=== PATIENT | female | born 1955 | race Caucasian/White ===

== ENCOUNTER → 2016-09-15 | Day surgery (SDC) | payer OTHER ==
[2016-09-07 12:46] VITALS: Ht 156.2 cm; Wt 131.8 kg
[~2016-09-15] VITALS: Ht 156.2 cm; Wt 131.8 kg
[~2016-09-15] MED LIST: AMLO-110 PO; BIOT1CAP8 PO; CEPH500C PO; CHOL20009 PO; COEN100C11 PO; CYAN500T13 PO; LEVO137T3 PO; LIDOCAINE HCL 2% 2 ML VIAL (20MG/ML) ONE; MIDAZOLAM HCL 1 MG/ML 2ML VIAL ONE; OMEG10007 PO; PROPOFOL IV EMULSION 10 MG/ML 20 ML VIAL IV ONE; SODIUM CHLORIDE 0.9% 500ML 500 ML IV ONE; VITA400C3 PO
--- NOTE | 2016-09-15 12:49 | Endo History and Physical ---
History & Physical Date of Service: Sep 15, 2016. Chief Complaint: Hx of polyps, Family hx of colon ca Referring Physician: Dr Pop History of Present Illness 60 yo CF who presents for colonoscopy secondary to family history of colon cancer and personal history of colon polyps. Past Surgical History Hx Cardiac Surgery: No Hx Internal Defibrillator: No Hx Pacemaker: No Hx Abdominal Surgery: Yes (AVTAR) Hx of Implantable Prosthesis: No Hx Post-Op Nausea and Vomiting: No Hx Cancer Surgery: No Hx Thoracic Surgery: No Hx Orthopedic: No (RT KNEE ARTHROSCOPY) Hx Urinary Tract Surgery: No Family History Colon CA Social History Smoking Status: Never Smoker Hx Substance Use: No Hx Alcohol Use: Yes (OCCASSIONALLY) Allergies Coded Allergies: Iodinated Contrast Media (Verified Allergy, Unknown, HIVES, 09/15/16) Sulfa Drugs (Verified Allergy, Unknown, RASH, 09/15/16) Current Medications Reported Home Medications Medications Dose Route/Sig Max Daily Dose Days Date Category Vitamin E 400 Iu (Vitamin E) 400 Unit Cap 400 Inter.unit PO QAM 09/07/16 Reported Vitamin D (Cholecalciferol) 2,000 Unit Tab 2 Tab PO QAM 09/07/16 Reported [place]-3 (Fish Oil) 1 Ea Cap 1 Cap PO BID 09/07/16 Reported Vitamin B12 500MCG (Cyanocobalamin) 500 Mcg Tab 500 Mcg PO QAM 09/07/16 Reported Biotin 1 Mg Cap 1 Cap PO QAM 09/07/16 Reported Coq-10 (Coenzyme Q10 (Ubidecarenone)) 100 Mg Cap 200 Mg PO QAM 09/07/16 Reported Levothyroxine Sodium 137 Mcg Tab 1 Tab PO HS 90 09/07/16 Reported Vital Signs Weight (Kilograms): 131.82 Height (Feet): 5 Height (Inches): 1.5 Physical Exam General Appearance: WD/WN, no apparent distress Respiratory/Chest: Auscultation: breath sounds normal Cardiovascular: Heart Auscultation: RRR Abdomen: Bowel Sounds: normal Inspection & Palpation: soft, non-distended, no tenderness, guarding & rebound Assessment and Plan Assessment: 60 yo CF who presents for colonoscopy secondary to family history of colon cancer and personal history of colon polyps. Plan: Proceed with colonoscopy.
--- NOTE | 2016-09-15 14:31 | Discharge Instructions ---
Endoscopy Patient Instructions Date / Procedure(s) Performed Sep 15, 2016. Colonoscopy Allergy Information Coded Allergies: Iodinated Contrast Media (Verified Allergy, Unknown, HIVES, 09/15/16) Sulfa Drugs (Verified Allergy, Unknown, RASH, 09/15/16) Discharge Date / Findings Sep 15, 2016. Colon polyp Internal hemorrhoids Medication Instructions OK to resume all medications today as prescribed Reported Home Medications Medications Dose Route/Sig Max Daily Dose Days Date Category Vitamin E 400 Iu (Vitamin E) 400 Unit Cap 400 Inter.unit PO QAM 09/07/16 Reported Vitamin D (Cholecalciferol) 2,000 Unit Tab 2 Tab PO QAM 09/07/16 Reported [place]-3 (Fish Oil) 1 Ea Cap 1 Cap PO BID 09/07/16 Reported Vitamin B12 500MCG (Cyanocobalamin) 500 Mcg Tab 500 Mcg PO QAM 09/07/16 Reported Biotin 1 Mg Cap 1 Cap PO QAM 09/07/16 Reported Coq-10 (Coenzyme Q10 (Ubidecarenone)) 100 Mg Cap 200 Mg PO QAM 09/07/16 Reported Levothyroxine Sodium 137 Mcg Tab 1 Tab PO HS 90 09/07/16 Reported Provider Instructions Activity Restrictions - No exercising or heavy lifting for 24 hours. - Do not drink alcohol the day of the procedure. - Do not drive a car or operate machinery until the day after the procedure. - Do not make any important decisions or sign important papers in 24 hours after the procedure. Following Day: - Return to full activity which may include returning to work/school. Diet Start your diet with liquids and light foods (jello, soup, juice, toast). Then eat your usual diet if not nauseated. Treatment For Common After Affects For mild abdominal pain, bloating, or excessive gas: - Rest - Eat lightly - Lie on right side Follow-Up Information Follow-up with Dr Pop as scheduled Anesthesia Information What You Should Know You have had a procedure that required some medicine to reduce anxiety and discomfort. This treatment is called moderate sedation. After receiving the treatment, you may be sleepy, but you will be able to breathe on your own. The effects of the treatment may last for several hours. Follow these instructions along with Activity/Diet recommendations noted above: * Do NOT do anything where dizziness or clumsiness would be dangerous. * Rest quietly at home today, then you can be up and about tomorrow. * Have a responsible person stay with you the rest of today. * You may have had an I.V. today. If so, you may take the dressing off later today. Recommendations Call your doctor if: * Trouble breathing * Continuous vomiting for more than 24 hours * Temperature above 101 degrees * Severe abdominal pain or bloating * Pain not relieved by pain medicine ordered * There is increased drainage or redness from any incision * A large amount of rectal bleeding greater than 2-3 tablespoons. (If you had a polyp/s removed or have hemorrhoids, a small amount of blood - from the rectum is to be expected.) * You have any unanswered questions or concerns. IN THE EVENT OF A SERIOUS EMERGENCY, GO TO THE NEAREST EMERGENCY ROOM Your discharge instructions were prepared by provider Robert Campos. Patient Instructions Signature Page Zuleyka Disla Patient (or Guardian) Signature/Date: I have read and understand the instructions given to me by my caregivers. Caregiver/RN/Doctor Signature/Date: The above-named patient and/or guardian has received patient instructions on this date. + Original Patient Signature Page (only) stays with chart. Please make copy for patient.
--- NOTE | 2016-09-15 14:54 | Anesthesiology Progress Note ---
Anesthesia Post Op Note Date & Time Sep 15, 2016 at 14:53 Vital Signs Pain Intensity: 0 Vital Signs Past 12 Hours Date Time Temp Pulse Resp B/P Pulse Ox O2 Delivery O2 Flow Rate FiO2 09/15/16 14:45 76 16 140/61 99 Room Air 09/15/16 14:30 74 12 120/56 97 Room Air 09/15/16 12:54 36.7 84 16 198/68 97 Room Air Notes Mental Status: alert / awake / arousable Nausea / Vomiting: adequately controlled Pain: adequately controlled Airway Patency, RR, SpO2: stable & adequate BP & HR: stable & adequate Hydration State: stable & adequate Anesthetic Complications: no major complications apparent
[2016-09-15 15:00] VITALS: BP 152/67; PULSE 70; O2SAT 99
--- NOTE | 2016-09-16 00:46 | GI REPORT ---
Procedure Date: 09/15/2016 1:55 PM Procedure: Colonoscopy Indications: High risk colon cancer surveillance: Personal history of colonic polyps, Family history of colon cancer in a first-degree relative Medicines: Monitored Anesthesia Care Complications: No immediate complications. Estimated Blood Loss: Estimated blood loss: none. Procedure: Pre-Anesthesia Assessment: - Prior to the procedure, a History and Physical was performed, and patient medications and allergies were reviewed. The patient's tolerance of previous anesthesia was also reviewed. The risks and benefits of the procedure and the sedation options and risks were discussed with the patient. All questions were answered, and informed consent was obtained. Prior Anticoagulants: The patient has taken no previous anticoagulant or antiplatelet agents. ASA Grade Assessment: II - A patient with mild systemic disease. After reviewing the risks and benefits, the patient was deemed in satisfactory condition to undergo the procedure. After I obtained informed consent, the scope was passed under direct vision. Throughout the procedure, the patient's blood pressure, pulse, and oxygen saturations were monitored continuously. The On-site loaner was introduced through the anus and advanced to the terminal ileum. The colonoscopy was performed without difficulty. The patient tolerated the procedure well. The quality of the bowel preparation was good. The ileocecal valve, appendiceal orifice, and rectum were photographed. Findings: A 5 mm polyp was found in the sigmoid colon. The polyp was sessile. The polyp was removed with a hot snare. Resection and retrieval were complete. Non-bleeding internal hemorrhoids were found during retroflexion. The hemorrhoids were small. Impression: - One 5 mm polyp in the sigmoid colon, removed with a hot snare. Resected and retrieved. - Non-bleeding internal hemorrhoids. Recommendation: - Resume previous diet. - Continue present medications. - Repeat colonoscopy for surveillance based on pathology results. - Return to primary care physician as previously scheduled. Robert Campos DO 09/15/2016 2:30:46 PM This report has been signed electronically. Note Initiated On: 09/15/2016 1:55 PM I attest to the content of the Intraoperative Record and orders documented therein, exceptions below
== END | disposition home or self-care (01) ==
LOC: C.GI 12:20
PROVIDERS: ATTEND Internal Medicine
DX: Z12.11 Encounter for screening for malignant neoplasm of colon (principal); K63.5 Polyp of colon; Z86.010 Personal history of colon polyps; Z80.0 Family history of malignant neoplasm of digestive organs; K64.8 Other hemorrhoids; Z98.890 Other specified postprocedural states; Z88.2 Allergy status to sulfonamides; Z91.041 Radiographic dye allergy status

== ENCOUNTER → 2016-11-09 | Outpatient (CLI) | payer OTHER ==
[~2016-11-09] MED LIST changes: -LIDOCAINE HCL 2% 2 ML VIAL (20MG/ML) ONE; -MIDAZOLAM HCL 1 MG/ML 2ML VIAL ONE; -PROPOFOL IV EMULSION 10 MG/ML 20 ML VIAL IV ONE; -SODIUM CHLORIDE 0.9% 500ML 500 ML IV ONE
--- NOTE | 2016-11-09 12:49 | DIAGNOSTIC IMAGING REPORT ---
KUB CLINICAL HISTORY: Right flank pain. COMPARISON STUDY: CT of the abdomen and pelvis February 22, 2013. FINDINGS: The bowel gas pattern is normal. Pelvic calcifications likely reflect phleboliths. No convincing urinary calculi are identified. A 4 mm density lateral to the right transverse process of L1 is likely artifactual. IMPRESSION: 1. No evidence for a bowel obstruction. 2. No convincing urinary calculi identified. A 4 mm density projecting lateral to the right transverse process of L1 is likely artifactual. A calculus could appear similar but is considered less likely. Electronically signed by: Evelio Clarke M.D. 11/09/2016 12:47 PM Dictated Date/Time: 11/09/2016 12:45 PM
[2016-11-09 13:16] LABS: BASO % 0.1 %; BASO ABS # 0.01 K/uL (0-0.2); COMPLETE YES; EOS % 1.2 %; HEMATOCRIT 44.8 % (37-47); IG% 0.1 %; LYMPH % 30.7 %; LYMPH ABS # 2.09 K/uL (1.2-3.4); MEAN CORPUSCULAR HEMOGLOBIN 30.2 pg (25-34); MEAN CORPUSCULAR HGB CONC 32.8 g/dl (32-36); MEAN PLATELET VOLUME 9.6 fL (7.4-10.4); MONO % 6.6 %; NEUT % 61.3 %; PLATELET COUNT 358 K/uL (130-400); RED BLOOD COUNT 4.87 M/uL (4.2-5.4)
[2016-11-09 14:51] LABS: URINE APPEARANCE CLEAR (CLEAR); URINE BILIRUBIN NEG (NEG); URINE COLOR YELLOW; URINE NITRITE NEG (NEG); URINE SPECIFIC GRAVITY 1.011 (1.000-1.030); UROBILINOGEN NEG (NEG); ZZUR CULT IF INDIC CLEAN CATCH NO
[2016-11-09 14:54] LABS: MANUAL MICROSCOPIC REQUIRED? NO; REVIEW REQ? NO
[2016-11-09 14:56] LABS: ALT/SGPT 31 U/L (12-78); BLOOD UREA NITROGEN 16 mg/dl (7-18); BUN/CREATININE RATIO 20.5 (10-20); CARBON DIOXIDE 28 mmol/L (21-32); CHLORIDE 104 mmol/L (98-107); CREATININE 0.78 mg/dl (0.60-1.20); GLUCOSE 83 mg/dl (70-99); POTASSIUM 4.3 mmol/L (3.5-5.1); SODIUM 139 mmol/L (136-145)
[2016-11-09 15:00] LABS: CALCIUM 9.7 mg/dl (8.5-10.1)
[2016-11-09 15:07] LABS: ALKALINE PHOSPHATASE 76 U/L (45-117); AST/SGOT 20 U/L (15-37); THYROID STIMULATING HORMONE 0.568 uIu/ml (0.300-4.500)
== END | disposition home or self-care (01) ==
LOC: C.RAD1850 12:07
PROVIDERS: ATTEND Internal Medicine
DX: R10.9 Unspecified abdominal pain (principal); R39.9 Unspecified symptoms and signs involving the genitourinary system; E03.9 Hypothyroidism, unspecified

== ENCOUNTER → 2016-11-15 | Outpatient (CLI) | payer OTHER ==
--- NOTE | 2016-11-15 09:24 | DIAGNOSTIC IMAGING REPORT ---
Right upper quadrant ultrasound GALLBLADDER-ABD LIMITED CLINICAL HISTORY: K80.20 GS (gallstone)[id number] pain. Nausea. TECHNIQUE: Ultrasound COMPARISON STUDY: 02/23/2013 FINDINGS: Gallstones are present similar to the prior study. Common bile duct 5.5 mm. Liver is uniform. 1 cm right hepatic lobe hemangioma. Pancreas and right kidney unremarkable. IMPRESSION: 1. Gallstones. 2. Normal caliber bile ducts. 3. Small right hepatic lobe hemangioma Electronically signed by: Quirino Resendiz M.D. 11/15/2016 9:23 AM Dictated Date/Time: 11/15/2016 9:20 AM
== END | disposition home or self-care (01) ==
LOC: C.ULTR 08:53
PROVIDERS: ATTEND Internal Medicine
DX: K80.20 Calculus of gallbladder without cholecystitis without obstruction (principal); D18.03 Hemangioma of intra-abdominal structures

== ENCOUNTER → 2016-11-18 | Outpatient (CLI) | payer OTHER ==
--- NOTE | 2016-11-18 15:41 | MAMMOGRAPHY REPORT ---
BILATERAL DIGITAL SCREENING MAMMOGRAM WITH CAD: 11/18/2016 CLINICAL HISTORY: Routine screening. Patient has no complaints. TECHNIQUE: Current study was also evaluated with a Computer Aided Detection (CAD) system. Bilatera l CC and MLO and left XCCM and right X CCL views were obtained. COMPARISON: Comparison is made to exams dated: 09/16/2015 mammogram, 07/07/2014 mammogram, and 2012 mammogram - [facility]. BREAST COMPOSITION: There are scattered areas of fibroglandular density in both breasts. FINDINGS: No suspicious masses, calcifications, or areas of architectural distortion are noted in e ither breast. There has been no significant interval change compared to prior exams. IMPRESSION: ACR BI-RADS CATEGORY 2: BENIGN There is no mammographic evidence of malignancy. A 1 year screening mammogram is recommended. The p atient will receive written notification of the results. Approximately 10% of breast cancers are not detected with mammography. A negative mammographic repor t should not delay biopsy if a clinically suggestive mass is present. Alvina Nolasco M.D. ah/:11/18/2016 13:44:42 Ladle Filler: Torri LEWIS(R)(M), [facility] letter sent: Normal 1/2 BI-RADS Code: ACR BI-RADS Category 2: Benign
== END | disposition home or self-care (01) ==
LOC: C.MAMM 12:12
PROVIDERS: ATTEND Internal Medicine
DX: Z12.31 Encounter for screening mammogram for malignant neoplasm of breast (principal)

== ENCOUNTER 2016-12-07 20:08 | Emergency (ER) | payer OTHER ==
[~2016-12-07] VITALS: Ht 154.9 cm; Wt 144.3 kg
[~2016-12-07 20:08] MED LIST changes: -AMLO-110 PO; -CEPH500C PO
[2016-12-07 20:24] VITALS: TEMP 36.4; O2SAT 97; Ht 154.9 cm; Wt 144.3 kg
[2016-12-07] MEDS ORDERED: LABETALOL HCL IV 5 MG/ML 20ML IV STA (20:33)
--- NOTE | 2016-12-07 20:50 | EMERGENCY ROOM VISIT NOTE ---
History Report prepared by Yany: Miguel Bell Under the Supervision of: Dr. Jorge Junior M.D. First contact with patient: 20:31 Chief Complaint: HYPERTENSION Stated Complaint: NOSE BLEED History of Present Illness The patient is a 61 year old female who presents to the Emergency Room via ambulance with complaints of constant hypertension and nose bleeds occurring around an hour ago. The patient states that she got up after laying down, and her right nostril started bleeding, and then her left, and she has been passing clots. The patient states that she had hypertension a few years ago, though it was under control. She states that she was recently put on Norvasc, and today was the second day of using it. The patient states that she had to put pressure on her nose for an hour to stop it from bleeding. She states that she does not have a history of nose bleeds, though she had another one four days ago. The patient denies using any blood thinners, aspirin, Aleve, or ibuprofen. Source of History: patient Onset: an hour ago Position: other (global) Quality: other (hypertension) Timing: constant Note: Associated symptoms: Nose bleed. Review of Systems See HPI for pertinent positives & negatives. A total of 10 systems reviewed and were otherwise negative. Past Medical & Surgical Medical Problems: (1) Hypertension Social History Smoking Status: Never Smoker Marital Status: Housing Status: lives with family Occupation Status: employed Current/Historical Medications Scheduled Amlodipine (Norvasc), 5 MG PO DAILY Biotin (Biotin), 1 CAP PO QAM Cephalexin Monohydrate (Keflex), 500 MG PO TID Cholecalciferol (Vitamin D), 2 TAB PO QAM Coenzyme Q10 (Ubidecarenone) (Coq-10), 200 MG PO QAM Cyanocobalamin (Vitamin B12 500MCG), 500 MCG PO QAM Fish Oil ([place]-3), 1 CAP PO DAILY Levothyroxine Sodium (Levothyroxine Sodium), 1 TAB PO HS Allergies Coded Allergies: Iodinated Contrast Media (Verified Allergy, Unknown, HIVES, 12/07/16) Sulfa Drugs (Verified Allergy, Unknown, RASH, 12/07/16) Physical Exam Vital Signs Date Time Temp Pulse Resp B/P Pulse Ox O2 Delivery O2 Flow Rate FiO2 12/08/16 00:37 79 18 141/76 100 12/07/16 22:37 84 16 130/67 99 12/07/16 21:43 71 16 96 12/07/16 21:28 71 20 98 12/07/16 21:13 80 17 96 12/07/16 21:08 73 24 92 12/07/16 20:59 144/97 12/07/16 20:53 78 23 12/07/16 20:42 204/82 12/07/16 20:38 76 23 12/07/16 20:30 81 12/07/16 20:24 217/121 12/07/16 20:24 97 Room Air 12/07/16 20:24 36.4 80 18 217/121 99 Room Air Physical Exam GENERAL: Patient is in no acute distress. HEENT: Dried blood on the face. No active nasal bleeding. No blood running down the back of the throat. No acute trauma, normocephalic atraumatic, mucous membranes moist, no scleral icterus. NECK: No stridor, no adenopathy, no meningismus, trachea is midline. LUNGS: Clear to auscultation bilaterally, no wheeze, no rhonchi, breath sounds equal. HEART: Without murmurs gallops or rubs, regular rate and rhythm. ABDOMEN: Soft, nontender, bowel sounds positive, no hernias, no peritonitis. EXTREMITIES: No cyanosis or edema, full range of motion of all the joints without pain or difficulty, no signs for acute trauma. NEUROLOGIC: Oriented x 3, no acute motor or sensory deficits, no focal weakness. SKIN: No rash, no jaundice, no diaphoresis. Medical Decision & Procedures Laboratory Results 12/07/16 20:45 12/07/16 20:45 Test 12/07/16 20:45 Red Blood Count 4.41 M/uL (4.2-5.4) Mean Corpuscular Volume 89.8 fL (80-100) Mean Corpuscular Hemoglobin 30.2 pg (25-34) Mean Corpuscular Hemoglobin Concent 33.6 g/dl (32-36) RDW Standard Deviation 42.5 fL (36.4-46.3) RDW Coefficient of Variation 12.9 % (11.5-14.5) Mean Platelet Volume 9.2 fL (7.4-10.4) Anion Gap 7.0 mmol/L (3-11) Est Creatinine Clear Calc Drug Dose 80.6 ml/min Estimated GFR () 70.4 Estimated GFR (Non- 60.8 BUN/Creatinine Ratio 18.7 (10-20) Calcium Level 9.4 mg/dl (8.5-10.1) Thyroid Stimulating Hormone (TSH) 0.333 uIu/ml (0.300-4.500) Laboratory results reviewed by me. Medications Administered Medications (Trade) Dose Ordered Sig/Bart Route Start Time Stop Time Status Last Admin Dose Admin Labetalol HCl (Normodyne IV) 20 mg NOW STAT IV 12/07/16 20:33 12/07/16 20:36 DC 12/07/16 20:54 20 MG Acetaminophen (Tylenol Tab) 1,000 mg NOW STAT PO 12/07/16 23:53 12/07/16 23:55 DC 12/08/16 00:07 1,000 MG Cephalexin Monohydrate (Keflex Cap) 500 mg NOW STAT PO 12/07/16 23:53 12/07/16 23:55 DC 12/08/16 00:07 500 MG Amlodipine Besylate (Norvasc Tab) 2.5 mg NOW ONCE PO 12/08/16 00:00 12/08/16 00:01 DC 12/08/16 00:07 2.5 MG Procedure Right nostril was bleeding, and the patient was spitting up blood. Using Lidocaine, Afrin, and Nasoclips the bleeding was slowed, then a 4.5cm right sided Rhino Pack was put in place, and the bleeding stopped. ED Course 2030: The patient was evaluated in room B8. A complete history and physical exam was performed. 2032: Normodyne 20mg IV 9: I reevaluated the patient, and the patient had increased bleeding, and she was spitting up blood. 2349: Reevaluated the patient, and she had no further bleeding. She is just complaining of pressure from the pack in her nose. Discussed results and discharge instructions: She verbalized understanding and agreement. The patient is ready for discharge. 3: Keflex Cap 500mg PO, Tylenol Tab 1000mg PO 0000: Norvasc Tab Medical Decision The patient is a 61 year old female who presents to the ED with complaints of hypertension. Differential diagnoses considered include anterior or posterior epistaxis, anemia, coagulopathy, uncontrolled hypertension, nasal trauma, and renal disease. There is no leukocytosis or concerning anemia. No significant electrolyte abnormality or kidney failure. The patient was quite hypertensive upon arrival. She had been bleeding from what seemed like the right naris prior to arrival, the bleeding had stopped though by the time I came to do my assessment. The patient received IV labetalol, this did control her blood pressure. She was doing well but then got up to go to the bathroom and the right side of the nose began to bleed excessively. She had blood running down the right nostril and down the back of her throat. She was in distress. Afrin and lidocaine spray was applied. I attempted to place a 5.5 cm right Rhino pack without success. A 4.5 cm pack was placed and the balloon was inflated. The bleeding did stop. The patient was observed for some time, she has done well. She has some pain now on the right side of her nose and head I suspect from the pressure of the pack. She was given oral Tylenol, oral Keflex. She was given 2.5 mg of oral Norvasc. I did contact ears nose and throat on-call, he agreed to see the patient later in the week for reassessment and possibly packing removal. The patient is being discharged to increase her Norvasc to 7.5 mg daily. This will hopefully help control her blood pressure. She was told to return for worsening bleeding or worsening symptoms. She will be on Keflex to prevent sinusitis. Tylenol was suggested for pain. She was discharged in stable condition. Impression Primary Impression: Right-sided epistaxis Additional Impression: Hypertension Scribe Attestation The scribe's documentation has been prepared under my direction and personally reviewed by me in its entirety. I confirm that the note above accurately reflects all work, treatment, procedures, and medical decision making performed by me. Departure Information Dispostion Home / Self-Care Prescriptions Cephalexin Monohydrate (Keflex) 500 Mg Cap 500 MG PO TID for 7 Days, #21 CAP Prov: Jorge Junior M.D. 12/08/16 Referrals RV. Haddad MD (PCP) Forms HOME CARE DOCUMENTATION FORM, IMPORTANT VISIT INFORMATION, WORK / SCHOOL INSTRUCTIONS Patient Instructions My [facility] Additional Instructions keep the pack in for now--about 2-3 days keflex 3x per day while the pack is in place no aspirin or motrin or ibuprofen tylenol for pain no stooping, hot showers, straining or heavy lifting return for any rebleeding see ENT this week---call in the am for an appt if ENT can not see you, return to the ER Monday to have the pack removed Problem Qualifiers
[2016-12-07] MEDS ORDERED: OXYMETAZOLINE HCL 0.05% NA SPR 15 ML BTL ONE (20:53)
[2016-12-07 21:07] LABS: HEMATOCRIT 39.6 % (37-47); MEAN CELL VOLUME 89.8 fL (80-100); MEAN CORPUSCULAR HEMOGLOBIN 30.2 pg (25-34); MEAN CORPUSCULAR HGB CONC 33.6 g/dl (32-36); MEAN PLATELET VOLUME 9.2 fL (7.4-10.4); PLATELET COUNT 326 K/uL (130-400); RED BLOOD COUNT 4.41 M/uL (4.2-5.4); WHITE BLOOD COUNT 9.11 K/uL (4.8-10.8)
[2016-12-07 21:24] LABS: BUN/CREATININE RATIO 18.7 (10-20); POTASSIUM 3.6 mmol/L (3.5-5.1)
[2016-12-07 21:34] LABS: THYROID STIMULATING HORMONE 0.333 uIu/ml (0.300-4.500)
[2016-12-07 22:01] LABS: CALCIUM 9.4 mg/dl (8.5-10.1)
[2016-12-07] MEDS ORDERED: LIDOCAINE 4% W/AFRIN NASAL SOLN 4ML ONE (22:18)
[2016-12-07] MEDS ORDERED: AMLO-110 PO (22:52)
[2016-12-07] MEDS ORDERED: CEPHALEXIN MONOHYDRATE 250 MG CAP PO STA (23:53)
[2016-12-07] MEDS ORDERED: ACETAMINOPHEN 500 MG TAB PO STA (23:53)
[2016-12-08] MEDS ORDERED: AMLODIPINE BESYLATE 5 MG TAB PO ONE
[2016-12-08] MEDS ORDERED: CEPH500C PO (00:13)
[2016-12-08 00:37] VITALS: BP 141/76; PULSE 79; O2SAT 100
== END 2016-12-08 00:38 | disposition home or self-care (01) ==
LOC: EDBD 20:08 → C.EDB 20:10
DX: R04.0 Epistaxis (principal); I10 Essential (primary) hypertension

== ENCOUNTER → 2017-11-10 | Outpatient (CLI) | payer OTHER ==
[~2017-11-10] MED LIST changes: +AMLO-110 PO; -VITA400C3 PO
[2017-11-10 12:38] LABS: BASO % 0.4 %; BASO ABS # 0.02 K/uL (0-0.2); EOS % 1.1 %; EOS ABS # 0.06 K/uL (0-0.5); HEMATOCRIT 42.9 % (37-47); HEMOGLOBIN 14.3 g/dL (12.0-16.0); LYMPH % 27.1 %; LYMPH ABS # 1.45 K/uL (1.2-3.4); MEAN CELL VOLUME 89.2 fL (80-100); MEAN CORPUSCULAR HEMOGLOBIN 29.7 pg (25-34); MEAN CORPUSCULAR HGB CONC 33.3 g/dl (32-36); MEAN PLATELET VOLUME 10.1 fL (7.4-10.4); MONO % 7.8 %; MONO ABS # 0.42 K/uL (0.11-0.59); NEUT % 63.6 %; NEUT ABS # 3.41 K/uL (1.4-6.5); PLATELET COUNT 340 K/uL (130-400); RED CELL DISTRIBUTION WIDTH CV 13.4 % (11.5-14.5); RED CELL DISTRIBUTION WIDTH SD 43.8 fL (36.4-46.3); WHITE BLOOD COUNT 5.36 K/uL (4.8-10.8)
[2017-11-10 12:58] LABS: ALT/SGPT 19 U/L (12-78); AST/SGOT 17 U/L (15-37); BLOOD UREA NITROGEN 12 mg/dl (7-18); CALCIUM 9.1 mg/dl (8.5-10.1); CARBON DIOXIDE 27 mmol/L (21-32); CHOLESTEROL 159 mg/dl (0-200); CREATININE 0.79 mg/dl (0.60-1.20); GLUCOSE 77 mg/dl (70-99); POTASSIUM 3.8 mmol/L (3.5-5.1); SODIUM 139 mmol/L (136-145)
[2017-11-10 13:07] LABS: ALKALINE PHOSPHATASE 75 U/L (45-117); LDL CHOLESTEROL CALCULATED 86 mg/dl; TOTAL PROTEIN 7.7 gm/dl (6.4-8.2); TRANSFERRIN 257 mg/dl (200-360)
== END | disposition home or self-care (01) ==
LOC: C.LAB1850 10:00
PROVIDERS: ATTEND Internal Medicine
DX: E03.9 Hypothyroidism, unspecified (principal); I99.8 Other disorder of circulatory system; Q84.2 Other congenital malformations of hair; R53.83 Other fatigue

== ENCOUNTER → 2017-11-23 | Outpatient (CLI) | payer OTHER ==
--- NOTE | 2017-11-24 07:47 | MAMMOGRAPHY REPORT ---
BILATERAL DIGITAL SCREENING MAMMOGRAM TOMOSYNTHESIS WITH CAD: 11/23/2017 CLINICAL HISTORY: Routine screening. TECHNIQUE: Breast tomosynthesis in addition to standard 2D mammography was performed. Current study was also evaluated with a Computer Aided Detection (CAD) system. COMPARISON: Comparison is made to exams dated: 11/18/2016 mammogram, 09/16/2015 mammogram, 07/07/2014 ma mmogram, 07/05/2013 mammogram, 01/28/2005 mammogram, and 03/10/2003 mammogram - [facility]. BREAST COMPOSITION: There are scattered areas of fibroglandular density in both breasts. FINDINGS: No suspicious masses, calcifications, or areas of architectural distortion are noted in ei ther breast. There has been no significant interval change compared to prior exams. IMPRESSION: ACR BI-RADS CATEGORY 1: NEGATIVE There is no mammographic evidence of malignancy. A 1 year screening mammogram is recommended. The pa tient will receive written notification of the results. Approximately 10% of breast cancers are not detected with mammography. A negative mammographic report should not delay biopsy if a clinically suggestive mass is present. Alvina Nolasco M.D. /:11/23/2017 14:30:46 Senior Materials Analyst: Karis LEWIS(Kya)(M), [facility] letter sent: Normal 1/2 BI-RADS Code: ACR BI-RADS Category 1: Negative
== END | disposition home or self-care (01) ==
LOC: C.MAMM 10:44
PROVIDERS: ATTEND Internal Medicine
DX: Z12.31 Encounter for screening mammogram for malignant neoplasm of breast (principal)

== ENCOUNTER 2020-05-15 06:44 | Observation (INO) ==
--- NOTE | 2020-04-17 10:00 | PAT Medication Instructions ---
Medication Instructions Date of Service April 17, 2020 Home Medications Medication Instructions Recorded amlodipine 5 mg tablet 5 mg PO BID #180 tab 01/02/20 levothyroxine 137 mcg capsule 137 mcg PO HS #90 cap 01/02/20 pentoxifylline 400 mg 400 mg PO BID #60 tab 02/11/20 tablet,extended release coenzyme Q10 200 mg capsule 200 mg PO QAM biotin 5,000 mcg SL QAM cholecalciferol (vitamin D3) 2,000 units PO QAM clonidine HCl 0.1 mg PO DAILY PRN amlodipine 5 mg tablet 5 mg PO BID levothyroxine 137 mcg capsule 137 mcg PO HS pentoxifylline 400 mg tablet,extended release 400 mg PO BID vitamin E 400 unit capsule 400 unit PO QAM bioflavonoids 500 mg PO QAM evening primrose oil 1,000 mg PO QAM ASK your prescriber and surgeon pentoxifylline 400 mg tablet,extended release 400 mg PO BID STOP taking 2 weeks before surgery coenzyme Q10 200 mg capsule 200 mg PO QAM biotin 5,000 mcg SL QAM vitamin E 400 unit capsule 400 unit PO QAM bioflavonoids 500 mg PO QAM evening primrose oil 1,000 mg PO QAM DO NOT take the morning of surgery cholecalciferol (vitamin D3) 2,000 units PO QAM Take morning of surgery With a small sip of water, OTHERWISE NOTHING TO EAT OR DRINK AFTER MIDNIGHT: clonidine HCl 0.1 mg PO DAILY PRN (if needed) amlodipine 5 mg tablet 5 mg PO BID Take evening before surgery clonidine HCl 0.1 mg PO DAILY PRN amlodipine 5 mg tablet 5 mg PO BID levothyroxine 137 mcg capsule 137 mcg PO HS Other Notes If you have any questions please call us at [phone] or [phone] or [phone] or [phone]
--- NOTE | 2020-04-20 11:55 | Anesthesiology Consultation ---
Date of Service April 20, 2020 Assessment & Plan (1) Encounter for pre-operative examination: Chart Review Chart Review: Acceptable Risk for Surgery (pending preop Covid testing ) and Patient seen in Pre Admission Testing Per PAT appt on 04/20/20, patient resides in [facility]. No known Covid positive contacts or Covid related symptoms. Educated patient to follow up with surgeon's office regarding Covid testing. Educated on importance of self quarantining, social distancing and wearing mask in public both for the patient and household contacts. Seen by PCP 03/09/20= discussed obesity. Started on Phentermine. Activity limited to bilateral knee discomfort. HTN- continue current meds. ECHO- 2017- done due to fluctuating BP. Noted to have LVH- no other sig abnormality. Allergies/asthma- controlled. MANUEL- continue with CPAP. Hypothyroidism- TSH ordered. Hyperlipidemia- working on diet and exercise. Bilateral knee osteoarthritis- patient to continue to follow with ortho- aware surgical intervention possibility in future. Continue with derm and pentoxifylline for lipodermatosclerosis. F/u in six months. Teaching & Discussion Pre-Anesthesia Teaching/Discussion Notes: Instructed NPO after midnight before surgery,except medications with 15 cc of water. Medication instructions provided according to the [facility] guidelines. History Surgery Operation Date: 05/15/20 07:30 Proposed Procedures p Right Total Knee Arthroplasty - Janusz De Guzman MD Height/Weight Height: 5 ft 0.5 in Weight: 137.2 kg Allergies Allergy/AdvReac Type Severity Reaction Status Date / Time Iodinated Contrast Media Allergy Intermediate HIVES Verified 04/14/20 14:14 Sulfa (Sulfonamide Allergy Intermediate Hives Verified 04/14/20 14:14 Antibiotics) doxycycline Allergy Mild blisters Verified 04/14/20 14:14 on skin phentermine AdvReac Intermediate Palpitation Verified 04/14/20 14:14 s Medications Home Medications Medication Instructions Recorded Confirmed Last Taken coenzyme Q10 200 mg capsule 200 mg PO QAM cap 01/01/19 04/14/20 09/29/19 08:00 biotin 5,000 mcg SL QAM 09/18/19 04/14/20 09/29/19 08:00 cholecalciferol (vitamin D3) 2,000 units PO QAM 09/18/19 04/14/20 09/29/19 08:00 clonidine HCl 0.1 mg PO DAILY PRN 09/18/19 04/14/20 Unknown amlodipine 5 mg tablet 5 mg PO BID #180 tab 01/02/20 04/14/20 Unknown levothyroxine 137 mcg capsule 137 mcg PO HS #90 cap 01/02/20 04/14/20 Unknown pentoxifylline 400 mg 400 mg PO BID #60 tab 02/11/20 04/14/20 Unknown tablet,extended release vitamin E 400 unit capsule 400 unit PO QAM cap 03/10/20 04/14/20 Unknown bioflavonoids 500 mg PO QAM 04/14/20 04/14/20 Unknown evening primrose oil 1,000 mg PO QAM 04/14/20 04/14/20 Unknown Past Medical History Medical History Diastolic dysfunction Grade II diastolic dysfunction per 2017 ECHO Hypertension Hypothyroidism Lipodermatosclerosis FOLLOWS WITH DERMATOLOGY Mild concentric left ventricular hypertrophy (LVH) Mild and concentric per 2017 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- no traffic 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 Morbid obesity Obstructive sleep apnea cpap PVD (posterior vitreous detachment) NO CURRENT PROBLEMS Exercise / Class Metabolic Activity II 4-5 Yardwork/Stairs/Walk up hill (one flight of stairs - no chest pain or SOB) Past Family History Family History Sister Thyroid cancer Breast cancer Family hx colonic polyps Mother Colon cancer Grandmother (Paternal) Stroke Other No family history of adverse response to anesthesia Denies family history of Ovarian cancer Prostate cancer Myocardial infarction Past Surgical History Surgical History History of arthroscopy of right knee History of section, low transverse X 1 History of colonoscopy with polypectomy History of dental surgery dental implant History of dilation and curettage History of partial hysterectomy History of tonsillectomy and adenoidectomy History of wisdom tooth extraction Past Anesthesia History No Hx of Anesthesia Complications and No Family Hx of Anesthesia Complications History of PONV No Hx of PONV and No Hx of Motion Sickness Social History Smoking Status: Never smoker Do You Dip or Chew Tobacco: No Hx Alcohol Use: Yes Alcohol type: wine alcohol intake frequency: holidays/special occasions only Hx Substance Use: No substance use type: does not use Review of Systems Patient denies chest pain, shortness of breath, dyspnea on exertion, reflux, cough, wheezing, palpitations. No hx of seizures, stroke, [place]. No hx of blood clots or blood transfusions Physical Exam Vital Signs VITALS BP 155/77 P 79 TEMP 98.4 SP02 99% RESP 16 Constitutional no acute distress ENMT Mouth: + small oral opening; no TMJ clicking Thyromental Distance: < 3.5 Finger Breadths (3.0) Mallampati Class: I Top front teeth capped Permanent implant and bridge to bottom molars Crowns to molars Neck + short neck and + thick neck; neck extension not limited Respiratory normal respiratory effort; no respiratory distress Auscultation: lungs clear to auscultation bilaterally; no wheezes Cardiovascular Rate/Rhythm: regular rate and regular rhythm Heart Sounds: no murmur Vessels: no carotid bruit Musculoskeletal Spine: no pain with cervical ROM Neurologic moves all extremities Psychiatric Orientation: alert Testing Laboratory Results 04/20/20 12:36 PT 10.3 Seconds (9.0-12.0) 04/20/20 12:36 INR 1.0 (0.9-1.1) 04/20/20 12:36 APTT 33.8 Seconds (21.0-31.0) H 04/20/20 12:36 Blood Type A Negative 04/20/20 12:36 Antibody Screen NEGATIVE 04/20/20 12:36 04/20/20= SODIUM: 140 POTASSIUM: 4.0 CHLORIDE: 109 CO2: 26 BUN: 15 CREATININE: 0.87 GLUCOSE: 86 Electrocardiogram Date: 04/20/20 Findings: + NSR @ (70) Normal EKG. Chest X-Ray Date: 04/20/20 Findings: + NAD Echocardiogram Date: 01/20/17 EF: 55-60% LV Function: normal RWMA: + none Other Findings: + LVH (mild/concentric) Valvular Disease: + no significant valvular disease Grade II diastolic dysfunction
--- NOTE | 2020-04-20 13:03 | XRay Report ---
XR chest Pre-admission PA/Lat HISTORY: 64 years-old Female pat preoperative exam. No acute chest complaints COMPARISON: [facility]UB 11/09/2016 TECHNIQUE: PA and lateral views of the chest FINDINGS: Cardiomediastinal and hilar silhouettes are within normal limits. There is no pneumothorax, pleural e ffusion, airspace consolidation or overt pulmonary edema. Degenerative changes of the shoulders and s pine. The bones of the chest appear grossly intact. IMPRESSION: No acute process. ACT 112: Negative or not required by law. The above report was generated using voice recognition software. It may contain grammatical, syntax o r spelling errors. Electronically signed by: Dago Comer M.D. 04/20/2020 1:02 PM
[2020-04-20 13:25] LABS: Basophils # (auto) 0.02 K/uL (0-0.2); Basophils % (auto) 0.3 %; Eosinophils # (auto) 0.24 K/uL (0-0.5); Eosinophils % (auto) 3.2 %; Hemoglobin 14.3 g/dL (12.0-16.0); Immature Granulocytes # (auto) 0.01 K/uL (0.00-0.02); Immature Granulocytes % (auto) 0.1 %; Lymphocytes # (auto) 1.43 K/uL (1.2-3.4); Mean Corpuscular Hemoglobin 30.2 pg (25-34); Mean Corpuscular Hgb Conc 33.3 g/dL (32-36); Mean Corpuscular Volume 90.9 fL (80-100); Mean Platelet Volume 9.6 fL (7.4-10.4); Monocytes # (auto) 0.51 K/uL (0.11-0.59); Monocytes % (auto) 6.8 %; Neutrophils # (auto) 5.33 K/uL (1.4-6.5); Neutrophils % (auto) 70.6 %; Platelet Count 348 K/uL (130-400); RDW Coefficient of Variation 13.7 % (11.5-14.5); RDW Standard Deviation 45.5 fL (36.4-46.3); Red Blood Count 4.73 M/uL (4.2-5.4); White Blood Count 7.54 K/uL (4.8-10.8)
[2020-04-20 13:35] LABS: Partial Thromboplastin Ratio 1.2; Partial Thromboplastin Time 33.8 Seconds (21.0-31.0); Prothrombin Time 10.3 Seconds (9.0-12.0)
--- NOTE | 2020-04-20 17:10 | Electrocardiogram Report ---
Test Reason : Blood Pressure : / mmHG Vent. Rate : 070 BPM Atrial Rate : 070 BPM P-R Int : 182 ms QRS Dur : 098 ms QT Int : 406 ms P-R-T Axes : 024 061 071 degrees QTc Int : 438 ms Normal sinus rhythm Normal ECG When compared with ECG of 19-DEC-2001 13:24, No significant change was found Confirmed by Jero Hernandez ([id number]) on 04/20/2020 5:09:56 PM Referred By: Janusz De Guzman Confirmed By:Kj Hernandez
[~2020-05-15 06:44] MED LIST changes: +ACETAMINOPHEN 500 MG TAB PO SCH; -AMLO-110 PO; -BIOT1CAP8 PO; +BUPIVACAINE 0.5 % 5 MG/1 ML PF 10ML VIAL ONE; +BUPIVACAINE LIPOSOME/PF 266 MG, BUPIVACAINE/EPINEPHRINE 50 ML, SODIUM CHLORIDE 0.9% 30 ... INFIL SCH; +BUPIVACAINE/EPINEPHRINE 0.25% 1:200,000 30 ML VIAL ONE; -CHOL20009 PO; -COEN100C11 PO; -CYAN500T13 PO; +DEXAMETHASONE SOD INJ 4 MG/ML VIAL ONE; +FAMOTIDINE 20 MG TAB PO SCH; +GABAPENTIN 600 MG DOSE PO SCH; -LEVO137T3 PO; +LR 15ML/HR IV SCH; +LR 60ML/HR IV SCH; +METOCLOPRAMIDE HCL 10 MG TABLET PO SCH; -OMEG10007 PO; +TRANEXAMIC ACID 1,000 MG **IV Intra-op IV SCH
--- NOTE | 2020-05-15 06:50 | History & Physical Bridge Note ---
Date of Service May 15, 2020 History & Physical Bridge Note I have examined the patient, reviewed the History & Physical and in the interval since the performance of the History & Physical I have noted the following changes of clinical significance: no changes noted
[2020-05-15] MEDS ORDERED: MIDAZOLAM HCL 1 MG/ML 2ML VIAL ONE ×2 (07:48→10:24)
[2020-05-15] MEDS ORDERED: PROPOFOL IV EMULSION 10 MG/ML 20 ML VIAL IV ONE ×4 (07:48→11:04)
[2020-05-15] MEDS ORDERED: LIDOCAINE HCL 2% 2 ML VIAL/AMP(20MG/ML) INFIL ONE (07:48)
[2020-05-15] MEDS ORDERED: fentaNYL citrate 100 MCG/2 ML VIAL ONE (07:49)
[2020-05-15] MEDS ORDERED: ONDANSETRON INJ 2 MG/ML 2 ML VIAL ONE (07:49)
[2020-05-15] MEDS ORDERED: DEXAMETHASONE SOD INJ 4 MG/ML VIAL ONE (07:49)
[2020-05-15] MEDS ORDERED: BUPIVACAINE LIPOSOME 1.3% 266 MG/20 ML VIAL ONE (08:38)
[2020-05-15] MEDS ORDERED: BACITRACIN INJ 50,000 UNIT VIAL ONE (08:38)
[2020-05-15] MEDS ORDERED: SODIUM CHLORIDE 0.9% PF 50 ML VIAL ONE (08:38)
[2020-05-15] MEDS ORDERED: EPINEPHrine INJ 1 MG/ML AMP ONE (08:39)
[2020-05-15] MEDS ORDERED: BUPIVACAINE 0.25% 30 ML VIAL ONE (08:39)
[2020-05-15] MEDS ORDERED: VANCOMYCIN HCL 1000MG/20ML VIAL ONE (08:39)
[2020-05-15] MEDS ORDERED: ePHEDrine sulfate 50 MG/ML AMP IV PRN (08:45)
[2020-05-15] MEDS ORDERED: fentaNYL citrate 100 MCG/2 ML VIAL IV PRN (08:45)
[2020-05-15] MEDS ORDERED: ONDANSETRON INJ 2 MG/ML 2 ML VIAL IV PRN ×2 (08:45→12:33)
[2020-05-15] MEDS ORDERED: ATROPINE SULFATE 0.1 MG/ML 10ML SYR IV PRN (08:45)
[2020-05-15] MEDS ORDERED: ePHEDrine sulfate 50 MG/ML SYR ONE (09:24)
[2020-05-15] MEDS ORDERED: PHENYLEPHRINE 100MCG/ML 5ML SYR ONE (09:24)
--- NOTE | 2020-05-15 11:13 | Post Operative Brief Note ---
PG Immediate Post Op with CF Date of Surgery May 15, 2020 Pre & Post Diagnosis Operation Date: 05/15/20 08:50 Pre-Op Diagnosis: Right Knee Degenerative Joint Disease Post-Op Diagnosis: Right Knee Degenerative Joint Disease I identified the patient and participated in the time-out.: Yes Procedure Operation Date: 05/15/20 08:50 Actual Procedures p Right Total Knee Replacement(Right) - Janusz De Guzman MD Surgeon Janusz De Guzman MD [employer]or [place], PAC Estimated Blood Loss 50 Findings Consistent with Post-Op Diagnosis Fluids 1600 cc Specimens Specimen Description: Permanent Solution: A: Right knee bone and tissue Drains Rodríguez Catheter (clean/dry/intact; rodríguez inserted by Stevo Mcconnell PA-C without difficulty) Anesthesia Type Spinal MAC Complications none Disposition Accompanied Patient To Recovery: No Disposition: Recovery Room
--- NOTE | 2020-05-15 11:25 | Operative Report ---
Post Operative Report Pre & Post Diagnosis Operation Date: 05/15/20 08:50 Pre-Op Diagnosis: Right Knee Degenerative Joint Disease Post-Op Diagnosis: Right Knee Degenerative Joint Disease I identified the patient and participated in the time-out.: Yes Procedure Operation Date: 05/15/20 08:50 Actual Procedures p Right Total Knee Replacement(Right) - Janusz De Guzman MD Surgeon Janusz De Guzman MD [employer] [place], PAC Estimated Blood Loss 50 Findings Consistent with Post-Op Diagnosis Operative findings revealed advanced right knee DJD. She had grade 4 [id number] disease in all 3 compartments. She had osteophytes in all 3 compartments. A very large soft tissue envelope. Fluids 1600 cc. Specimens Right knee sent for pathology. Drains None. Anesthesia Type Spinal MAC Complications none Disposition Accompanied Patient To Recovery: No Disposition: Recovery Room Indications Patient is a 64-year-old female who is morbidly obese with a BMI 56 who is had a long history of bilateral knee pain discomfort right side greater left knee she failed all conservative measures. She was actually scheduled for knee replacement surgery 2 years ago but got canceled due to her BMI. She is attempted various weight loss attempts with pretty limited success. She is markedly debilitated by her knee pain and limited motion and limited function due to her arthritis. She elected to a total knee arthroplasty. I did place a stem in her tibia due to her very large size and her significant deformity preoperatively. Description of Procedure Operative implants consist of: 1. Biomet Vanguard size 65 right posterior stabilized femoral component. 2. Biomet size 67 tibial tray with an 80 x 12 mm offset extension with a 5 mm offset and a small cruciate wing. 3. 12 mm posterior stabilized polyethylene insert. 4. 28 x 8 all polypatella. Patient was taken the operating identified and placed on the operating table supine position protectors were properly padded. IV antibiotics arrived by anesthesia team. A spinal anesthetic and abductor canal block had been provided in the holding area. Marcus catheter was placed in sterile fashion. Right template in the right lower extremity was then prepped and draped in usual sterile fashion. The right leg was elevated exsanguinated with use of an Esmarch and turns placed at 3 and 50 mmHg. An anterior approach to the right knee was then performed to longitudinal incision centered over the patella. Sharp dissection was carried through subcutaneous tissue down the extensor mechanism. A medial parapatellar arthrotomy incision was made. Some subperiosteal dissection was carried out medially for the fat pad was resected from each patella tendon. The lateral patellofemoral ligament was released. Patella was subluxated laterally and the knee was flexed. The osteophytes were taken off distal femur. The ACL and PCL were then released from distal femur and the tibia subluxate anteriorly. I resected the tibial eminence. The intramedullary canal was entered with the starter drill. I reamed up to a size 12. The 12 reamer was left in place and I used this to cut the proximal tibia. The tibia was cut to remove about a millimeter bone from most efficient aspect medial till plateau. Attention drawn the femur. The distal femur turned the sharp drop with intramedullary canal with suction. A right 5 degree valgus cutting guide was placed. Distal femoral cutting block was pinned in place. Distal femoral cut was made to take an additional 3 mm bone off distal femur. The femur was then sized to a size 65. We did downsize a slightly. Cutting block was pinned parallel to the epicondylar axis which was 5 degrees of external rotation. The anterior cut, anterior chamfer, posterior cut, posterior chamfer cuts were made. Box cutting guide was placed in [facility] lateral box cut was made. The knee was flexed. The remnants of the medial and lateral menisci were excised. The osteophytes were taken off the posterior aspect the femur. A trial femoral component was placed. The tibia was then subluxated anteriorly. I then prepared the tibia. The tibia was sized to a size 67. I used a 5 mm offset guide and the proximal tibia was prepared for the 80 x 12 mm offset stem with a small cruciate wing. The trial implant was assembled and placed. I then trialed the knee and the 12 insert fit most appropriately. Attention drawn the patella. The patella was cleaned of all soft tissues. Patella thickness measured 22 mm in thickness and was cut down to 14. Was sized to a size 28 patella. Locals were drilled for the 28 patella. The lateral osteophyte is moved. Patella button was placed. Knee was taken through range of motion patella tracked nicely with no thumbs test. Attention drawn to place the permanent components. All trial components were removed. A bone plug was placed in the distal femur limit blood loss. A double batch of Palacos G cement was mixed with an additional gram of vancomycin. A size 65 right posterior by femoral component, size 67 tibial tray with a 12 x 80 mm offset stem with a small cruciate wing was then placed, 812 mm posterior stabilized polyethylene insert, and a 28 x 8 all polypatella. All extraneous cement was removed. The knee was brought out in full extension total cement hardened. Final cement check was then performed. Pericapsular tissues were injected with total 100 cc of combination of 20 cc of Exparel, 30 cc normal saline, 50 cc of quarter percent Marcaine with epinephrine. Patient did receive 1 g tranexamic acid per the tech was then let down for final tourniquet time 75 minutes. Hemostasis assured use electrocautery to the extensor mechanism closed with combination 1 PDS suture in a 1 Vicryl suture in a [id number] fashion. Extensor mechanism checked found to be intact the subcutaneous tissue then closed with 2 Dexon suture in a buried interrupted fashion. Skin was closed skin carmen. Legs then cleaned dried a sterile dressed with Xeroform, 4 x 4's, sterile cast padding, Mingo bandage were applied. Patient then transferred to the recovery room in stable condition. The patient tolerated procedure well and there were no complications. Stevo Mcconnell, my physician server service assistant, was present for the entire procedure. His assistance was essential and required for appropriate patient positioning, prepping and draping, surgical exposure, performing the technical details of the operation, placement the implants, closure of the wound, and placement of the sterile bandage. I attest to the content of the Intraoperative Record and any orders documented therein. Any exceptions are noted below.
--- NOTE | 2020-05-15 11:44 | Anesthesiology Progress Note ---
Date of Service May 15, 2020 Anesthesia Post Procedure Vital Signs Vital Signs: Temp Pulse Pulse Resp BP BP Pulse Ox 05/15/20 11:35 79 16 126/60 98 05/15/20 11:25 73 16 142/57 H 100 05/15/20 11:19 36.8 C 79 16 147/61 H 100 05/15/20 08:27 74 20 157/62 H 100 05/15/20 07:51 36.8 C 79 18 162/64 H 100 Pain Intensity Right Knee: Pain Intensity: 4 Transfer of Care Handoff Completed per policy Notes Mental Status: alert / awake / arousable Patient Amnestic to Procedure: Yes Nausea / Vomiting: adequately controlled Pain: adequately controlled Airway Patency, RR, SpO2: stable & adequate BP & HR: stable & adequate Hydration State: stable & adequate Neuraxial Anesthesia: was administered and sensory block is resolving Anesthetic Complications: no major complications apparent and Pt Satisfied with anesthetic care
--- NOTE | 2020-05-15 11:44 | XRay Report ---
XR knee RT 1 or 2V routine CLINICAL HISTORY: Postop study COMPARISON: X-ray study dated 04/20/2020 DISCUSSION: There are postsurgical changes of a total right knee arthroplasty and patellar resurfacin g utilizing a longstem tibial component. The femoral tibial components appear well seated. There is g as present within the soft tissues consistent with recent surgery. There are overlying skin carmen. IMPRESSION: Postsurgical changes of a total right knee arthroplasty. ACT 112: Negative or not required by law. Electronically signed by: Seven Grant M.D. 05/15/2020 11:42 AM
[2020-05-15] MEDS ORDERED: diphenhydrAMINE Capsule 25 MG CAP PO PRN (12:33)
[2020-05-15] MEDS ORDERED: oxyCODONE HCL IR 5 MG TAB (IMMEDIATE RELEASE) PO PRN (12:33)
[2020-05-15] MEDS ORDERED: METOCLOPRAMIDE HCL INJ 5 MG/ML 2 ML VIAL IV PRN (12:33)
[2020-05-15] MEDS ORDERED: cloNIDine HCL 0.1 MG TAB PO PRN (12:33)
[2020-05-15] MEDS ORDERED: MAGNESIUM HYDROXIDE SUSP 30 ML UDC PO PRN (12:33)
[2020-05-15] MEDS ORDERED: NALOXONE HCL 0.4 MG/1 ML VIAL/CARP IV PRN (12:33)
[2020-05-15] MEDS ORDERED: HYDROmorphone INJ 0.5 MG/0.5 ML SYR IV PRN (12:33)
[2020-05-15] MEDS ORDERED: bisacodyL 10 MG SUPP PR PRN (12:33)
[2020-05-15] MEDS ORDERED: ALUMINUM/MAGNESIUM SUSP 30 ML UDC PO PRN (12:33)
[2020-05-15] MEDS: SODIUM CHLORIDE 0.9% 1000ML 1,000 ML IV SCH ×2 (13:17→20:27)
[2020-05-15] MEDS: ACETAMINOPHEN 500 MG TAB PO SCH ×2 (13:21→21:41)
[2020-05-15] MEDS: KETOROLAC 30 MG/ML VIAL IV SCH ×2 (14:09→20:06)
[2020-05-15] MEDS: Scopolamine CHECK PATCH PLACEMENT SCH (16:24)
[2020-05-15] MEDS ORDERED: TRANEXAMIC ACID / 0.7% NACL 1,000 MG/100 ML BAG IV SCH (17:15)
[2020-05-15] MEDS: ASCORBIC ACID 500 MG TAB PO SCH (17:40)
[2020-05-15] MEDS: FERROUS GLUCONATE 324 MG TAB PO SCH (17:40)
[2020-05-15] MEDS: ceFAZolin 2000MG 2,000 MG/15 ML SYR IV SCH (17:40)
[2020-05-15] MEDS: DOCUSATE SODIUM 100 MG CAP PO SCH (20:34)
[2020-05-15] MEDS: ASPIRIN 81 MG ECTAB PO SCH (20:34)
[2020-05-15] MEDS: amLODIPine BESYLATE 5 MG TAB PO SCH (20:35)
[2020-05-15] MEDS: TAPENTADOL HCL ER 50 MG TABCR PO SCH (20:35)
[2020-05-15] MEDS ORDERED: SENNA 8.6 MG TAB PO SCH (21:00)
[2020-05-15] MEDS ORDERED: LEVOTHYROXINE SODIUM 137 MCG TABLET PO SCH (21:00)
[2020-05-16] MEDS: Scopolamine CHECK PATCH PLACEMENT SCH ×2 (01:58→09:14)
[2020-05-16] MEDS: KETOROLAC 30 MG/ML VIAL IV SCH ×2 (01:58→09:17)
[2020-05-16] MEDS: ceFAZolin 2000MG 2,000 MG/15 ML SYR IV SCH (01:58)
[2020-05-16] MEDS: SODIUM CHLORIDE 0.9% 1000ML 1,000 ML IV SCH (03:46)
[2020-05-16 06:19] LABS: Hematocrit (blood only) 36.1 % (37-47); Hemoglobin 11.7 g/dL (12.0-16.0); Mean Corpuscular Hemoglobin 29.8 pg (25-34); Mean Corpuscular Hgb Conc 32.4 g/dL (32-36); Mean Corpuscular Volume 91.9 fL (80-100); Mean Platelet Volume 9.7 fL (7.4-10.4); Platelet Count 341 K/uL (130-400); RDW Coefficient of Variation 13.5 % (11.5-14.5); RDW Standard Deviation 45.2 fL (36.4-46.3); Red Blood Count 3.93 M/uL (4.2-5.4); White Blood Count 11.38 K/uL (4.8-10.8)
[2020-05-16] MEDS: ACETAMINOPHEN 500 MG TAB PO SCH (06:39)
[2020-05-16 06:49] LABS: BUN Creatinine Ratio 15.2 (10-20); Calcium 8.4 mg/dl (8.5-10.1); Creatinine Clr Calc Pharmacy 92.9 ml/min; Est GFR (African American) 91.7; Est GFR (Non-African American) 79.1; Potassium 3.9 mmol/L (3.5-5.1)
[2020-05-16] MEDS ORDERED: MULTIVITAMIN TAB PO SCH (09:00)
[2020-05-16] MEDS ORDERED: CHOLECALCIFEROL 1,000 UNITS 25 MCG TAB PO SCH (09:00)
[2020-05-16] MEDS ORDERED: BIOFLAVONOIDS PO SCH (09:00)
[2020-05-16] MEDS ORDERED: TOCOPHERYL, DL-ALPHA 400 UNITS CAP PO SCH (09:00)
[2020-05-16] MEDS ORDERED: NON-FORMULARY MEDICATION (Coenzyme Q10 200 mg capsule) PO SCH (09:00)
[2020-05-16] MEDS ORDERED: EVENING PRIMROSE OIL 500 MG PO SCH (09:00)
[2020-05-16] MEDS: ASCORBIC ACID 500 MG TAB PO SCH (09:15)
[2020-05-16] MEDS: ASPIRIN 81 MG ECTAB PO SCH (09:16)
[2020-05-16] MEDS: DOCUSATE SODIUM 100 MG CAP PO SCH (09:16)
[2020-05-16] MEDS: FERROUS GLUCONATE 324 MG TAB PO SCH (09:17)
[2020-05-16] MEDS: TAPENTADOL HCL ER 50 MG TABCR PO SCH (09:21)
[2020-05-16] MEDS: amLODIPine BESYLATE 5 MG TAB PO SCH (09:22)
--- NOTE | 2020-05-16 09:25 | Progress Notes ---
DATE: 05/16/2020 SUBJECTIVE: A 64-year-old female postop day 1 from a right knee replacement. She is doing pretty well. Had good night. Pain is controlled. No chest pain or shortness of breath. Not feeling dizzy or lightheaded. She states she is walking around pretty well with a walker. OBJECTIVE: VITAL SIGNS: Temperature 36.7. Vital signs stable. GENERAL: Shows a pleasant, obese female. She is lying in bed, looks quite comfortable this morning. LUNGS: Clear to auscultation. HEART: Has a regular rate and rhythm. ABDOMEN: Soft, nontender, nondistended. EXTREMITIES: Grossly neurovascularly intact except as follows. Examination of the right leg reveals the leg to be well aligned. Dressing is clean, dry and intact. She can dorsiflex and plantarflex her foot appropriately. She can do a very good straight leg raise. LABORATORY DATA: Hemoglobin 11.7. Hematocrit 36.1. White cell count 11.38. Electrolytes are stable. ASSESSMENT: A 64-year-old female postop day 1 from a right knee replacement, doing remarkably well. Pain is controlled. Her leg is functioning well with good straight leg raise. She is neurologically intact. PLAN: 1. DVT prophylaxis including thigh-high TEDs, SCDs, and aspirin twice a day. 2. PT/OT. Weight bear as tolerated. Right total knee protocol. 3. Pain control, doing well with current pain regimen. 4. Disposition: We will see how therapy goes today. She is planning on going home with home health once adequately recovered and pain controlled. We will see how therapy goes today.
[2020-05-17] MEDS ORDERED: PENTOXIFYLLINE 400MG EXT REL TAB PO SCH (21:00)
--- NOTE | 2020-05-19 06:27 | Discharge Summary ---
Date of Service May 19, 2020 Admission HPI Per Admitting Provider Documented in the H & P Admission Exam (Per Admitting) Constitutional Documented in the h & P Discharge Data Consultations 05/15/20 12:33 Consult Case Management - Discharge Planning Routine Procedures Performed Operation Date: 05/15/20 08:50 Actual Procedures p Right Total Knee Replacement(Right) - Janusz De Guzman MD Hospital Course (1) Status post total right knee replacement: This patient is a 64 year old female admitted on 05/15/20 and underwent total knee arthroplasty. She tolerated the procedure well and there were no complications. Transferred to the PACU post op and later to the orthopedic floor for further care. She was given ancef for antibiotic prophylaxis. She was also given JASON stockings, SCDs, and aspirin for DVT prophylaxis. Hemoglobin, hematocrit, and vital signs were monitored during her hospital stay and remained stable. Did not require any blood transfusions. There were no complications during her hospital stay. By post op day #1 the patient was tolerating a regular diet, pain was reasonably controlled with oral pain medicine, and she was participating in physical therapy. On post op day #1 the patient was discharged home and set up with home health care. She was given printed discharge instructions including prescriptions for extra strength tylenol, aspirin, and oxycodone. Continue physical therapy, weight bearing as tolerated. Continue JASON stockings. Follow up approximately 2 weeks post op or sooner if there are problems or concerns. Coding Level of Care Code None Diagnoses Status post total right knee replacement Z96.651
== END 2020-05-16 13:05 | disposition home health service (06) ==
LOC: 3E 06:44 → ASU 06:44

== ENCOUNTER 2020-08-21 04:57 | Observation (INO) ==
--- NOTE | 2020-08-05 11:07 | Anesthesiology Consultation ---
Date of Service August 05, 2020 Assessment & Plan (1) Encounter for pre-operative examination: Chart Review Chart Review: Acceptable Risk for Surgery (pending preop Covid testing results ) and Patient NOT seen in Pre Admission Testing Per nursing assessment 07/24/20, patient resides [facility]. Wears mask, uses good hand hygiene and socially distances. No known Covid positive contacts or Covid related symptoms. Scheduled for preop Covid testing 08/17/20= will await results. Last seen by PCP 04/30/20= seen for preop evaluation prior to right TKA on 05/15/20. HTN, asthma/allergies, MANUEL, hypothyroidism and hyperlipidemia stable. Bilateral knee osteoarthritis. Planning for initial right TKA April 2020. Preop testing completed with EKG/chest x-ray in blood test pretty much normal April 20, 2020 PTT upper limits normal likely associated with being overweight. Discussion with pharmacist about pentoxifylline necessity to stop 1 week prior surgery. Restarting pentoxifylline after the surgery based on the discretion on the surgeon, at that time patient will needs to be started on aspirin 81 mg to take 2 tablets daily at least for several weeks Right TKA 05/15/20= Done under MAC with SAB at L3-4 with 1 attempt. Pt complained of difficulty breathing when flat (increased BMI). HOB increased to 30 degrees with blanket and pillow with improvement. History Surgery Operation Date: 08/21/20 07:15 Proposed Procedures p Left Total Knee Arthroplasty - Janusz De Guzman MD Height/Weight Height: 5 ft 0.5 in Weight: 124.738 kg Allergies Allergy/AdvReac Type Severity Reaction Status Date / Time Iodinated Contrast Media Allergy Intermediate HIVES Verified 07/24/20 15:04 Sulfa (Sulfonamide Allergy Intermediate Hives Verified 07/24/20 15:04 Antibiotics) doxycycline Allergy Mild blisters Verified 07/24/20 15:04 on skin phentermine AdvReac Intermediate Palpitation Verified 07/24/20 15:04 s Medications Home Medications Medication Instructions Recorded Confirmed Last Taken coenzyme Q10 200 mg capsule 200 mg PO QAM cap 01/01/19 07/24/20 05/01/20 cholecalciferol (vitamin D3) 2,000 units PO QAM 09/18/19 07/24/20 05/14/20 clonidine HCl 0.1 mg PO DAILY PRN 09/18/19 07/24/20 Unknown amlodipine 5 mg tablet 5 mg PO BID #180 tab 01/02/20 07/24/20 05/15/20 06:00 levothyroxine 137 mcg capsule 137 mcg PO HS #90 cap 01/02/20 07/24/20 05/14/20 23:30 vitamin E 400 unit capsule 400 unit PO QAM cap 03/10/20 07/24/20 05/01/20 pentoxifylline 400 mg 400 mg PO BID #60 tab 06/01/20 07/24/20 Unknown tablet,extended release Bioflavanoids With Vit C Otc 500 mg PO QAM 07/24/20 07/24/20 Unknown Past Medical History Medical History (Updated 08/05/20 @ 11:16 by Alyssa Ochoa PA-C) Asthma Per records- hx of normal PFTs in the past- uses albuterol only PRN. Diastolic dysfunction Grade II diastolic dysfunction per 2017 ECHO Hyperlipidemia Diet controlled per PCP records Hypertension Hypothyroidism Lipodermatosclerosis FOLLOWS WITH DERMATOLOGY Mild concentric left ventricular hypertrophy (LVH) Mild and concentric per 2017 ECHO- no flight purser Morbid obesity Obstructive sleep apnea cpap Osteoarthritis PVD (posterior vitreous detachment) NO CURRENT PROBLEMS Past Family History Family History Sister Thyroid cancer Breast cancer Family hx colonic polyps Mother Colon cancer Grandmother (Paternal) Stroke Other No family history of adverse response to anesthesia Denies family history of Ovarian cancer Prostate cancer Myocardial infarction Past Surgical History Surgical History History of arthroscopy of right knee History of section, low transverse X 1 History of colonoscopy with polypectomy History of dental surgery dental implant History of dilation and curettage History of partial hysterectomy History of tonsillectomy and adenoidectomy History of total knee replacement RIGHT 04/2020 History of wisdom tooth extraction Social History Smoking Status: Never smoker Do You Dip or Chew Tobacco: No Hx Alcohol Use: Yes Alcohol type: wine alcohol intake frequency: other Alcohol Intake Frequency Comment: RARELY Hx Substance Use: No substance use type: does not use Testing Laboratory Results Blood Type A Negative 08/04/20 07:50 Antibody Screen NEGATIVE 08/04/20 07:50 Laboratory Tests 04/20/20 08/04/20 08/04/20 12:36 07:50 07:50 WBC 6.22 Hgb 14.0 Hct 44.5 Plt Count 389 PT 10.3 INR 1.0 Sodium Potassium Chloride Carbon Dioxide BUN Creatinine Glucose TSH 0.430 08/04/20 07:50 WBC Hgb Hct Plt Count PT INR Sodium 139 Potassium 4.1 Chloride 107 Carbon Dioxide 29 BUN 15 Creatinine 0.78 Glucose 76 TSH Electrocardiogram Date: 04/20/20 Findings: + NSR @ (70) Normal EKG. Chest X-Ray Date: 04/20/20 Findings: + NAD Echocardiogram Date: 01/20/17 EF: 55-60% LV Function: normal RWMA: + none Other Findings: + LVH (mild/concentric) Valvular Disease: + no significant valvular disease Grade II diastolic dysfunction
--- NOTE | 2020-08-11 23:30 | History and Physical Report ---
DATE OF ADMISSION: 08/21/2020 CHIEF COMPLAINT: Persistent left knee pain and discomfort. HISTORY OF PRESENT ILLNESS: The patient is a 64-year-old female now about 3 months out from a right knee replacement. She is doing quite well from this side. She has got a long history of knee problems and has been limited for quite some time. She has been through extensive conservative treatment over time. She has done well from this right knee replacement, but limited by left knee pain and discomfort. She has continued to try and lose weight over time, but had difficulty due to her limited mobility. Pain is global. The more she is up on it, the more it hurts. She limps pretty much all the time. She is anxious to get her a left knee fixed so she can get more active and hopefully lose a bit more weight. She has been on a weight loss program. PAST MEDICAL HISTORY: 1. Hypertension. 2. Asthma. 3. Hypothyroidism. 4. Arthritis. 5. Obesity with BMI of 53. PAST SURGICAL HISTORY: Includes, 1. Hysterectomy. 2. Tonsillectomy. 3. . 4. Oral surgery. 5. Right knee replacement done on 05/15/2020. ALLERGIES: SULFA AND DOXYCYCLINE. CURRENT MEDICINES: Include, 1. Amlodipine 5 mg twice a day. 2. 100 mg twice a day. 3. Levothyroxine 137 mcg a day. 4. Coenzyme Q. 5. Vitamin C. 6. Vitamin D. 7. Biotin. 8. [place] oil. 9. Zinc. SOCIAL HISTORY: Significant for a 64-year-old female. She is from [place]. She is . Rare alcohol intake. 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 FAMILY HISTORY: Significant for colon cancer, breast cancer, thyroid cancer. REVIEW OF SYSTEMS: Negative for diabetes, neurologic problem, vascular problems or bleeding disorders. No history of DVT or PE. She is obese with a BMI of 53 and trying to lose weight. She also has sleep apnea. PHYSICAL EXAMINATION: GENERAL: Shows a pleasant, middle-aged female. Looks to be in reasonably good health. HEENT: Benign. NECK: Supple, no lymphadenopathy. LUNGS: Clear to auscultation. HEART: Has a regular rate and rhythm. ABDOMEN: Soft, nontender, nondistended. EXTREMITIES: Grossly neurovascularly intact except as follows: Examination of both knees reveals the patient walks with a bit of a waddling gait. Examination of the left knee reveals slight varus alignment. Large soft tissue envelope. Range of motion about 5-10 degrees short of full extension to about 90 degrees of flexion. No pain with hip motion. Examination of the right knee reveals a well-healed incision. Range of motion 0-105. It is limited by her soft tissues. No instability. She can do a good straight leg raise. X-RAYS: X-rays of the left knee revealed advanced left knee medial compartment DJD. She has got a complete loss of her medial joint space. She has tibial femoral subluxation. She has osteophytes in all 3 compartments. The right knee replacement looks to be in good position without signs of problem. ASSESSMENT: A 64-year-old female with multiple medical comorbidities, most significantly morbid obesity, hypertension, asthma, hypothyroidism with advanced left knee degenerative joint disease. She is 3 months out from right knee replacement, doing well and would like to have her left knee replaced. PLAN: We will take her to the operating room and do a left total knee replacement. The risks and benefits of this procedure were explained to the patient including but not limited to DVT, PE, , infection, neurological injury, vascular injury, bleeding problem, pain, limited range of motion, stiffness, failure to relieve her symptoms, incomplete relief of symptoms, need for further surgery in the future, fracture, leg length inequality, nerve palsy, etc. The patient understands and desires to proceed. Informed consent was obtained. We did talk to her on bringing her CPAP machine to the hospital. We will likely put some vancomycin in the cement due to her increased risk of infection due to her obesity. She is planning to be discharged to home using [facility] home health program.
[2020-08-21] MEDS ORDERED: FAMOTIDINE 20 MG TAB PO SCH (06:00)
[2020-08-21] MEDS ORDERED: LR 60ML/HR IV SCH (06:00)
[2020-08-21] MEDS ORDERED: GABAPENTIN 600 MG DOSE PO SCH (06:00)
[2020-08-21] MEDS ORDERED: BUPIVACAINE LIPOSOME/PF 266 MG, BUPIVACAINE/EPINEPHRINE 50 ML, SODIUM CHLORIDE 0.9% 30 ... INFIL SCH (06:00)
[2020-08-21] MEDS ORDERED: LR 500ML BOLUS, THEN 15ML/HR IV SCH (06:00)
[2020-08-21] MEDS ORDERED: TRANEXAMIC ACID 1,000 MG **IV Intra-op IV SCH (06:00)
[2020-08-21] MEDS ORDERED: ACETAMINOPHEN 500 MG TAB PO SCH (06:00)
[2020-08-21] MEDS ORDERED: METOCLOPRAMIDE HCL 10 MG TABLET PO SCH (06:00)
[2020-08-21] MEDS ORDERED: EPINEPHrine INJ 1 MG/ML AMP ONE ×2 (06:25→06:45)
[2020-08-21] MEDS ORDERED: ROPIVACAINE 0.5% 5 MG/ML 30 ML VIAL ONE (06:25)
[2020-08-21] MEDS ORDERED: BUPIVACAINE 0.5 % 5 MG/1 ML PF 10ML VIAL ONE (06:25)
[2020-08-21] MEDS ORDERED: PROPOFOL IV EMULSION 10 MG/ML 20 ML VIAL IV ONE ×4 (06:40→09:17)
[2020-08-21] MEDS ORDERED: MIDAZOLAM HCL 1 MG/ML 2ML VIAL ONE ×2 (06:41→07:20)
[2020-08-21] MEDS ORDERED: fentaNYL citrate 100 MCG/2 ML VIAL ONE (06:41)
[2020-08-21] MEDS ORDERED: BUPIVACAINE LIPOSOME 1.3% 266 MG/20 ML VIAL ONE (06:44)
[2020-08-21] MEDS ORDERED: BACITRACIN INJ 50,000 UNIT VIAL ONE (06:44)
[2020-08-21] MEDS ORDERED: SODIUM CHLORIDE 0.9% PF 50 ML VIAL ONE (06:44)
[2020-08-21] MEDS ORDERED: LIDOCAINE HCL 2% 2 ML VIAL/AMP(20MG/ML) INFIL ONE (06:45)
[2020-08-21] MEDS ORDERED: BUPIVACAINE 0.25% 30 ML VIAL ONE (06:45)
[2020-08-21] MEDS ORDERED: VANCOMYCIN HCL 1000MG/20ML VIAL ONE (06:50)
--- NOTE | 2020-08-21 06:54 | History & Physical Bridge Note ---
Date of Service August 21, 2020 History & Physical Bridge Note I have examined the patient, reviewed the History & Physical and in the interval since the performance of the History & Physical I have noted the following changes of clinical significance: no changes noted
[2020-08-21] MEDS ORDERED: ONDANSETRON INJ 2 MG/ML 2 ML VIAL ONE (07:26)
[2020-08-21] MEDS ORDERED: ePHEDrine sulfate 50 MG/ML SYR ONE (08:58)
--- NOTE | 2020-08-21 09:40 | Post Operative Brief Note ---
PG Immediate Post Op with CF Date of Surgery August 21, 2020 Pre & Post Diagnosis Operation Date: 08/21/20 07:00 Pre-Op Diagnosis: Left Knee Advanced Degenerative Joint Disease Post-Op Diagnosis: Left Knee Advanced Degenerative Joint Disease I identified the patient and participated in the time-out.: Yes Procedure Operation Date: 08/21/20 07:00 Actual Procedures p Left Total Knee Arthroplasty(Left) - Janusz De Guzman MD Surgeon Janusz De Guzman MD Supervisor Dog License Officer FERNANDO Mcconnell Estimated Blood Loss 50 Findings Consistent with Post-Op Diagnosis Fluids 1500 cc. Specimens Specimen Description: A. Left Knee Bone and Tissue Drains Marcus Catheter Complications none Disposition Accompanied Patient To Recovery: No Disposition: Recovery Room
[2020-08-21] MEDS ORDERED: ATROPINE SULFATE 0.1 MG/ML 10ML SYR IV PRN (10:12)
[2020-08-21] MEDS ORDERED: ePHEDrine sulfate 50 MG/ML AMP IV PRN (10:12)
--- NOTE | 2020-08-21 10:12 | Anesthesiology Progress Note ---
Date of Service August 21, 2020 Anesthesia Post Procedure Vital Signs Vital Signs: Temp Pulse Pulse Resp BP Pulse Ox 08/21/20 10:05 36.7 C 75 17 151/55 H 100 08/21/20 09:55 77 20 152/60 H 100 08/21/20 09:47 36.4 C L 83 20 118/50 L 100 08/21/20 05:27 36.6 C 82 20 167/58 H 96 Transfer of Care Handoff Completed per policy Notes Mental Status: alert / awake / arousable Patient Amnestic to Procedure: Yes Nausea / Vomiting: adequately controlled Pain: adequately controlled Airway Patency, RR, SpO2: stable & adequate BP & HR: stable & adequate Hydration State: stable & adequate Neuraxial Anesthesia: was administered and sensory block is resolving Anesthetic Complications: no major complications apparent
--- NOTE | 2020-08-21 10:27 | XRay Report ---
LEFT KNEE 2 VIEWS History: Left total knee arthroplasty. Degenerative arthritis. Postop. FINDINGS: The patient is status post a left total knee arthroplasty. The hardware is intact. No fract ure or dislocation. Skin carmen are in place. IMPRESSION: Left total knee arthroplasty. No evidence for hardware complication. ACT 112: Negative or not required by law. Electronically signed by: Aldair Calvillo M.D. 08/21/2020 10:26 AM
[2020-08-21] MEDS ORDERED: cloNIDine HCL 0.1 MG TAB PO PRN (10:28)
[2020-08-21] MEDS ORDERED: ONDANSETRON INJ 2 MG/ML 2 ML VIAL IV PRN (10:28)
[2020-08-21] MEDS ORDERED: NALOXONE HCL 0.4 MG/1 ML VIAL/CARP IV PRN (10:28)
[2020-08-21] MEDS ORDERED: bisacodyL 10 MG SUPP PR PRN (10:28)
[2020-08-21] MEDS ORDERED: ALUMINUM/MAGNESIUM SUSP 30 ML UDC PO PRN (10:28)
[2020-08-21] MEDS ORDERED: KETOROLAC 30 MG/ML VIAL IV SCH (10:28)
[2020-08-21] MEDS ORDERED: METOCLOPRAMIDE HCL INJ 5 MG/ML 2 ML VIAL IV PRN (10:28)
[2020-08-21] MEDS ORDERED: MAGNESIUM HYDROXIDE SUSP 30 ML UDC PO PRN (10:28)
[2020-08-21] MEDS ORDERED: diphenhydrAMINE Capsule 25 MG CAP PO PRN (10:28)
[2020-08-21] MEDS: SODIUM CHLORIDE 0.9% 1000ML 1,000 ML IV SCH ×2 (12:01→18:53)
[2020-08-21] MEDS: ACETAMINOPHEN 500 MG TAB PO SCH ×2 (14:19→21:40)
[2020-08-21] MEDS ORDERED: TRANEXAMIC ACID / 0.7% NACL 1,000 MG/100 ML BAG IV SCH (15:43)
[2020-08-21] MEDS: Scopolamine CHECK PATCH PLACEMENT SCH (16:28)
--- NOTE | 2020-08-21 16:36 | Operative Report ---
Post Operative Report Pre & Post Diagnosis Operation Date: 08/21/20 07:00 Pre-Op Diagnosis: Left Knee Advanced Degenerative Joint Disease Post-Op Diagnosis: Left Knee Advanced Degenerative Joint Disease I identified the patient and participated in the time-out.: Yes Procedure Operation Date: 08/21/20 07:00 Actual Procedures p Left Total Knee Arthroplasty(Left) - Janusz De Guzman MD Because of this patient's morbid obesity and BMI of 54 the surgery was extremely difficult. It took twice as much time as a standard knee replacement and was exponentially more difficult due to her very short and fat the leg. Surgeon Janusz De Guzman MD Nurse Research FERNANDO Mcconnell Estimated Blood Loss 50 Findings Consistent with Post-Op Diagnosis Operative findings real advanced left knee DJD. She had extensive grade 4 changes in all 3 compartments. She had osteophytes in all 3 compartments. Large knee joint effusion. Morbid obesity very very large soft tissue envelope. Fluids 1500 cc. Specimens Left knee sent for pathology. Drains None. Anesthesia Type Spinal MAC Complications none Disposition Accompanied Patient To Recovery: No Disposition: Recovery Room Indications Patient is a 64-year-old morbidly obese female with a long history of bilateral knee pain discomfort that failed conservative treatment over time. She was actually scheduled for knee surgery 2 years ago but had to cancel due to being denied and due to her BMI. She has been through many episodes of attempted weight loss with some intermittent on and off success. She is failed all conservative measures. She underwent a right knee replacement at 3 and half months ago and is done well from this. She elected to a left total knee arthroplasty. Due to her large BMI and morbid obesity, I did place a stem in her tibia. Her surgery was extremely difficult due to her soft tissue envelope and took twice as long as a stair knee replacement and was exponentially more difficult technically. Description of Procedure Operative implants consist of: 1 Biomet Vanguard size 65 left posterior stabilized femoral component. 2. Biomet size 67 tibial tray with a 80 x 12 mm offset extension with a 5 mm offset and a small cruciate wing. 3. 10 mm posterior stabilized polyethylene insert. 4. 28 x 8 all polypatella. The patient was taken to the operating identified and placed on the operating table supine position but all contact areas were properly padded. IV antibi otics tried by anesthesia team. A spinal anesthetic and abductor canal block had provided holding area. Marcus catheter was placed in sterile fashion. A left thigh turn was then placed in the left lower extremities and prepped and draped in usual sterile fashion. Left leg was elevated exsanguinated with use of an Esmarch and tourniquet placed at 3 and 50 mmHg. An anterior approach left knee was then performed to longitudinal incision centered over the patella. Sharp dissection was carried through subcutaneous this down the extensor mechanism. A medial parapatellar arthrotomy incision was made. Some subperiosteal dissection was carried out medially. The fat pad was resected from each patella tendon. Lateral patellofemoral ligament was released and the patella was subluxated laterally. The knee was flexed. The osteophytes were taken off the intercondylar notch area. The ACL and PCL were then released and the tibia was subluxated anteriorly. The tibial eminence was resected. I then instrumented the IM canal and reamed up to a size 12 reamer. The IM reamer was left in place and the proximal tibia was cut off the reamer. This was cut to make a cut to 1 mm below the most deficient aspect of the medial till plateau. The tibia was then sized to a size 67. Some osteophytes taken off medially. The tibia was then prepared for a 67 tray with a 80 x 12 mm stem with a 5 mm offset and a small cruciate wing. The implant was placed and attention was drawn to the femur. The distal femur was entered with a sharp drop with intramedullary canal was suction. A left 5 degree valgus cutting guide was placed. Distal femoral cutting block was pinned in place. Distal femoral cut was made to take an additional 3 mm of bone off distal femur. The femur was then sized to a size 65. Sized almost exactly to 65. The AP cutting block was pinned parallel to the epicondylar axis which was 6 degrees of external rotation. The anterior cut, anterior chamfer, posterior cut, posterior chamfer cuts were made. Box cutting guide was placed in just slight lateral box cut was made. The knee was flexed. The remnants of the medial and lateral menisci were excised. The osteophytes were taken off the posterior aspect of the femur. A trial femoral component was placed. I then trialed the knee and the 10 mm insert fit most appropriately. Attention drawn the patella. The patella was cleaned of all soft tissues. Patella thickness measured 21 mm in thickness was cut down to 14. Size a size 28 patella. The lug holes were drilled for the 28 patella. The lateral osteophyte is moved. Patella button was placed. Knee was taken through range of motion and the patella tracked well with no thumbs test. Attention drawn to placing the permanent components. All trial components were removed. A bone plug was placed in the distal femur limit blood loss. A double batch Pal[place]os G cement was mixed with an additional gram of vancomycin due to her increased risk of infection. A size 65 left posterior stabilized femoral component was then cemented in place followed by a 67 tray with an 80 mm x 12 mm offset extension and a small cruciate wing, a 10 mm posterior stabilized polyethylene insert, and 28 x 8 all polypatella. The knee was brought out into full extension total cement hardened. Final cement check was then performed. Pericapsular tissues were injected with total 100 cc of combination of 20 cc of Exparel, 30 cc normal saline, 50 cc of quarter percent Marcaine with epinephrine. Patient did receive 1 g tranexamic acid. The tourniquet was then let down for total tourniquet time of 90 minutes. Hemostasis assured use electrocautery. Wounds once again irrigated. Extensor mechanism closed with combination 1 PDS suture #1 Vicryl suture in [id number] fashion. Extensor mechanism checked found to be intact the subcutaneous tissue then closed with 2 Dexon suture in a buried knot fashion skin was closed skin carmen. Leg was then cleaned dried a sterile dressing both Xeroform, 4 x 4's, sterile cast padding, Mingo bandage were applied. The patient then transferred to the recovery in stable condition. Patient tolerated procedure well and there were no complications. Stevo Mcconnell, my physician printer's assistant, was present for the entire procedure. His assistance was essential and required for appropriate patient positioning, prepping and draping, surgical exposure, performing the technical details of the operation, placement the implants, closure of the wound, and placement of the sterile bandage. I attest to the content of the Intraoperative Record and any orders documented therein. Any exceptions are noted below.
[2020-08-21] MEDS: ceFAZolin 2000MG 2,000 MG/15 ML SYR IV SCH (16:52)
[2020-08-21] MEDS: FERROUS GLUCONATE 324 MG TAB PO SCH (17:42)
[2020-08-21] MEDS: ASCORBIC ACID 500 MG TAB PO SCH (17:42)
--- NOTE | 2020-08-21 18:09 | Progress Notes ---
DATE: 08/21/2020 SUBJECTIVE: A 64-year-old white female postop from a left knee replacement. She is doing quite well. Really not having much pain yet. No chest pain or shortness of breath. Not feeling dizzy or lightheaded. OBJECTIVE: VITAL SIGNS: Temperature 36.4. Vital signs stable. GENERAL: Shows a pleasant, middle-aged female. She is sitting up in her bedside chair and looks pretty comfortable. LUNGS: Clear to auscultation. HEART: Has a regular rate and rhythm. ABDOMEN: Soft, nontender, nondistended. EXTREMITIES: Grossly neurovascularly intact except as follows: Examination of the left lower extremity reveals the dressing to be clean, dry and intact. Knee is well aligned. She can dorsiflex and plantarflex her foot appropriately. She is neurologically intact. X-RAYS: X-rays of the left knee from recovery room were reviewed. It shows a cemented posterior stabilized total knee arthroplasty with a tibial stem extension. Components looked to be in good position. Everything is well aligned. No signs of fracture. ASSESSMENT: A 64-year-old white female postoperative from left knee replacement, doing well. Pain is controlled. She is neurologically intact. PLAN: 1. DVT prophylaxis including thigh-high TEDs, SCDs, and aspirin twice a day. 2. PT/OT. She can weightbear as tolerated. Left total knee protocol. 3. Pain control, doing well with current pain regimen. 4. IV antibiotics x24 hours. 5. Disposition: We will plan to discharge her to home with some home health once adequately recovered and medically stable.
[2020-08-21] MEDS: TAPENTADOL HCL ER 50 MG TABCR PO SCH (20:35)
[2020-08-21] MEDS: LEVOTHYROXINE SODIUM 137 MCG TABLET PO SCH (20:35)
[2020-08-21] MEDS: SENNA 8.6 MG TAB PO SCH (20:35)
[2020-08-21] MEDS: PENTOXIFYLLINE 400MG EXT REL TAB PO SCH (20:36)
[2020-08-21] MEDS: ASPIRIN 81 MG ECTAB PO SCH (20:36)
[2020-08-21] MEDS: DOCUSATE SODIUM 100 MG CAP PO SCH (20:37)
[2020-08-21] MEDS: amLODIPine BESYLATE 5 MG TAB PO SCH (20:37)
[2020-08-21] MEDS: HYDROmorphone INJ 0.5 MG/0.5 ML SYR IV PRN (20:43)
[2020-08-22] MEDS: Scopolamine CHECK PATCH PLACEMENT SCH ×3 (00:38→15:13)
[2020-08-22] MEDS: ceFAZolin 2000MG 2,000 MG/15 ML SYR IV SCH (00:38)
[2020-08-22] MEDS: ACETAMINOPHEN 500 MG TAB PO SCH ×3 (05:55→21:28)
[2020-08-22 06:18] LABS: Hematocrit (blood only) 36.3 % (37-47); Mean Corpuscular Hemoglobin 29.9 pg (25-34); Mean Corpuscular Hgb Conc 33.1 g/dL (32-36); Mean Corpuscular Volume 90.3 fL (80-100); Mean Platelet Volume 9.2 fL (7.4-10.4); Platelet Count 273 K/uL (130-400); RDW Coefficient of Variation 13.4 % (11.5-14.5); RDW Standard Deviation 44.2 fL (36.4-46.3); Red Blood Count 4.02 M/uL (4.2-5.4); White Blood Count 9.06 K/uL (4.8-10.8)
[2020-08-22 06:53] LABS: BUN Creatinine Ratio 12.8 (10-20); Calcium 8.6 mg/dl (8.5-10.1); Creatinine Clr Calc Pharmacy 89.4 ml/min; Est GFR (African American) 91.7; Est GFR (Non-African American) 79.1; Potassium 3.7 mmol/L (3.5-5.1)
[2020-08-22] MEDS: HYDROmorphone INJ 0.5 MG/0.5 ML SYR IV PRN (07:30)
[2020-08-22] MEDS ORDERED: dexAMETHasone 4 MG TAB PO SCH (08:00)
[2020-08-22] MEDS: TAPENTADOL HCL ER 50 MG TABCR PO SCH ×2 (08:27→21:34)
[2020-08-22] MEDS: oxyCODONE HCL IR 5 MG TAB (IMMEDIATE RELEASE) PO PRN ×3 (08:27→21:29)
[2020-08-22] MEDS: amLODIPine BESYLATE 5 MG TAB PO SCH ×2 (08:28→21:30)
[2020-08-22] MEDS: ASCORBIC ACID 500 MG TAB PO SCH ×2 (08:28→17:33)
[2020-08-22] MEDS: ASPIRIN 81 MG ECTAB PO SCH ×2 (08:28→21:30)
[2020-08-22] MEDS: PENTOXIFYLLINE 400MG EXT REL TAB PO SCH ×2 (08:28→21:30)
[2020-08-22] MEDS: TOCOPHERYL, DL-ALPHA 400 UNITS CAP PO SCH (08:29)
[2020-08-22] MEDS: MULTIVITAMIN TAB PO SCH (08:29)
[2020-08-22] MEDS: FERROUS GLUCONATE 324 MG TAB PO SCH ×2 (08:29→17:33)
[2020-08-22] MEDS: CHOLECALCIFEROL 1,000 UNITS 25 MCG TAB PO SCH (08:29)
[2020-08-22] MEDS: DOCUSATE SODIUM 100 MG CAP PO SCH ×2 (08:34→21:28)
[2020-08-22] MEDS ORDERED: NON-FORMULARY MEDICATION (Coenzyme Q10 200 mg capsule) PO SCH (09:00)
[2020-08-22] MEDS ORDERED: [UNRECOGNIZED DRUG - MIXTURE] PO SCH (09:00)
--- NOTE | 2020-08-22 09:30 | Progress Notes ---
DATE: 08/22/2020 SUBJECTIVE: A 64-year-old female postop day 1 from a left knee replacement. She is doing okay but this knee is quite a bit more painful than the previous knee replacement that she had. She is requiring pain medicines. She is having trouble lifting her leg this morning. A little bit frustrated with her progress. No other complaints. OBJECTIVE: VITAL SIGNS: Temperature is 36.8. Vital signs stable. GENERAL: Shows a pleasant, middle-aged female. She is sitting up in bed and looks pretty comfortable this morning. EXTREMITIES: Examination of the left leg reveals the dressing to be clean, dry and intact. She can dorsiflex and plantarflex her foot appropriately. She is neurologically intact. LABORATORY DATA: Hemoglobin 12.0. Hematocrit 36.3. Electrolytes are stable. ASSESSMENT: A 64-year-old female postop day 1 from a left knee replacement, doing okay. This is pretty much par for the course. She ____ the knee replacement pretty easily, just taking Tylenol. PLAN: 1. DVT prophylaxis including thigh-high TEDs, SCDs, and aspirin twice a day. 2. PT/OT. She can weightbear as tolerated. Left total knee protocol. 3. Pain control. We will continue current pain regimen. She is going to need some narcotic pain medicines likely with this knee, which is more than normal. 4. Disposition: She is going to see how therapy goes today. She is a bit uncomfortable pain rodriguez and wants to stay in the hospital until tomorrow. We will see how therapy goes and hopeful discharge tomorrow after therapy.
[2020-08-22] MEDS: SENNA 8.6 MG TAB PO SCH (21:30)
[2020-08-22] MEDS: LEVOTHYROXINE SODIUM 137 MCG TABLET PO SCH (21:30)
[2020-08-23] MEDS: Scopolamine CHECK PATCH PLACEMENT SCH ×2 (00:38→08:20)
[2020-08-23] MEDS: oxyCODONE HCL IR 5 MG TAB (IMMEDIATE RELEASE) PO PRN ×2 (04:05→10:10)
[2020-08-23] MEDS: ACETAMINOPHEN 500 MG TAB PO SCH (05:58)
[2020-08-23] MEDS: ASCORBIC ACID 500 MG TAB PO SCH (08:20)
[2020-08-23] MEDS: TAPENTADOL HCL ER 50 MG TABCR PO SCH (08:20)
[2020-08-23] MEDS: PENTOXIFYLLINE 400MG EXT REL TAB PO SCH (08:20)
[2020-08-23] MEDS: MULTIVITAMIN TAB PO SCH (08:20)
[2020-08-23] MEDS: FERROUS GLUCONATE 324 MG TAB PO SCH (08:20)
[2020-08-23] MEDS: TOCOPHERYL, DL-ALPHA 400 UNITS CAP PO SCH (08:20)
[2020-08-23] MEDS: DOCUSATE SODIUM 100 MG CAP PO SCH (08:20)
[2020-08-23] MEDS: amLODIPine BESYLATE 5 MG TAB PO SCH (08:20)
[2020-08-23] MEDS: CHOLECALCIFEROL 1,000 UNITS 25 MCG TAB PO SCH (08:20)
[2020-08-23] MEDS: ASPIRIN 81 MG ECTAB PO SCH (08:20)
--- NOTE | 2020-08-23 08:40 | Progress Notes ---
DATE: 08/23/2020 SUBJECTIVE: A 64-year-old female postop day 2 from a left knee replacement. She is doing a bit better today. Pain seems to be better controlled. Therapy went okay. No chest pain or shortness of breath. Not feeling dizzy or lightheaded. Still frustrated she cannot quite lift her leg. OBJECTIVE: VITAL SIGNS: Temperature 36.5. Vital signs stable. GENERAL: Shows a pleasant, middle-aged female. She is lying in bed, looks pretty comfortable. EXTREMITIES: Examination of the left leg reveals the leg to be well aligned. Dressing is clean, dry and intact. She can dorsiflex and plantarflex her foot appropriately. She can do a straight leg raise with just a little bit of assistance. ASSESSMENT: A 64-year-old female postoperative day 2 from a left knee replacement, doing pretty well. Pain is better controlled today. She is neurologically intact. PLAN: 1. DVT prophylaxis including thigh-high TEDs, SCDs, and aspirin twice a day. She is also on pentoxifylline. 2. PT/OT. Weight bear as tolerated. Left total knee protocol. 3. Pain control, doing okay with current pain regimen. 4. Disposition: Plan to discharge to home with some home health later today.
--- NOTE | 2020-08-28 16:00 | Discharge Summary ---
Date of Service August 28, 2020 Discharge Data Consultations 08/21/20 10:28 Consult Case Management - Discharge Planning Routine Procedures Performed Operation Date: 08/21/20 07:00 Actual Procedures p Left Total Knee Arthroplasty(Left) - Janusz De Guzman MD Hospital Course (1) Status post total left knee replacement: This patient is a 64 year old female admitted on 08/21/20 and underwent total knee arthroplasty. She tolerated the procedure well and there were no complications. Transferred to the PACU post op and later to the orthopedic floor for further care. She was given ancef for antibiotic prophylaxis. She was also given JASON stockings, SCDs, and aspirin for DVT prophylaxis. Hemoglobin, hematoc rit, and vital signs were monitored during her hospital stay and remained stable. Did not require any blood transfusions. There were no complications during her hospital stay. By post op day #2 the patient was tolerating a regular diet, pain was reasonably controlled with oral pain medicine, and she was participating in physical therapy. On post op day #2 the patient was discharged home and set up with home health care. She was given printed discharge instructions including prescriptions for extra strength tylenol, aspirin, and oxycodone. Continue physical therapy, weight bearing as tolerated. Continue JASON stockings. Follow up approximately 2 weeks post op or sooner if there are problems or concerns. Coding Level of Care Code None Diagnoses Status post total left knee replacement Z96.652
== END 2020-08-23 10:35 | disposition home health service (06) ==
LOC: 3E 04:57 → ASU 04:57

== ENCOUNTER 2023-08-08 11:41 | Inpatient (IN) ==
--- NOTE | 2023-08-08 11:52 | Emergency Department Note ---
Impression & Plan Biliary colic ADMIT ED Provider Note HPI: History obtained from patient. The patient is a 67-year-old female with history of morbid obesity with BMI greater than 60, who presents to the emergency department with chief complaint of chest pain. Patient states that several hours prior to arrival she had an episode of acute and severe chest pain that was substernal and radiated to her back. Patient states that she did have some diaphoresis at the time as well. Patient states on arrival here to the ED that her chest pain is much improved. She did receive sublingual nitroglycerin via EMS prior to arrival. Patient states she does have a history of gallstones. Patient denies any vomiting. On arrival here to the ED the patient is hypertensive but otherwise hemodynamically stable. ROS: - Per HPI Differential Diagnosis: Acute coronary syndrome, aortic dissection, pulmonary embolism, acute esophagitis, acute gastritis, acute pancreatitis, acute cholecystitis, acute choledocholithiasis, amongst other potential pathologies. *Outpatient medications and allergy history reviewed. PE: General: Alert, morbidly obese HEENT: Normocephalic, trachea midline Eyes: Extraocular eye movement is intact, no scleral erythema Pulmonary: Clear to auscultation bilaterally, no wheezing Cardio: Regular rate and rhythm GI: Abdomen is soft to palpation, there is moderate tenderness over the mid abdomen and right upper quadrant with palpation without guarding or rigidity : No suprapubic tenderness MSK: No evidence of trauma or malformation of the extremities, no edema Skin: No evidence of rash Neuro: Alert, no focal deficits Psychiatric: Cooperative INDEPENDENT INTERPRETATIONS: patient monitor: (As interpreted by myself): - An order was placed for continuous cardiac monitoring - Patient was noted to be in sinus rhythm with a rate of 80 EKG: (As interpreted by myself): Rate: 86 Rhythm: Normal sinus rhythm Intervals: Within normal limits ST changes: No ST elevation Time: 1146 Chest x-ray: (As interpreted by myself): No acute disease Interventions provided in ED: -IV fluid bolus, IV Solu-Medrol, IV Benadryl Medical Decision Making: Patient presented to the emergency department with chief complaint of epigastric pain and chest pain that radiates to her back. On arrival here to the ED the patient states her pain is much improved from previous. Patient declined analgesia. IV was established and lab work obtained, patient was placed on cardiac monitor technician. Lab work shows no leukocytosis, hemoglobin is normal, platelet count is normal, CMP does not show any critical findings, no evidence of any transaminitis, bilirubin is normal. Troponin is negative x 1. Lipase is also normal. Urinalysis does not show any evidence of infection. EKG per my interpretation does not show any evidence of any acute ischemic changes. Delta troponin was obtained and is also negative. Ultrasound imaging of the right upper quadrant shows evidence of cholelithiasis without surrounding inflammatory changes. Common bile duct is measured at 7 mm/upper limit of normal per the interpreting radiologist. Given this and patient's history of cholelithiasis, I did discuss the case with Janet Tellez of gastroenterology over concern for possible choledocholithiasis. She recommended obtaining MRCP. This was ordered and following some delay to get the patient imaging patient declined to have imaging done when she got the MRI because she was feeling claustrophobic. Patient states that her claustrophobia is severe and she again declined MRI imaging to be obtained even after offering anxiolytic medications. CT imaging of the abdomen pelvis with IV contrast was therefore ordered and does not show any evidence of any acute inflammatory abnormalities. There is underlying evidence of cholelithiasis without surrounding inflammatory changes or acute cholecystitis. On my reassessment the patient states that she is feeling improved from previous but she still does have some tenderness with palpation in the right upper quadrant and patient states that she is hesitant to go home because she is concerned he may have another episode of severe pain that she cannot manage at home. I do suspect the patient's pain is likely secondary to biliary colic from her cholelithiasis. Given the patient's concerns, general surgery consult was placed. Patient was evaluated at the bedside by the general surgery PA, Caden Carey, patient will be placed for admission to the [facility] medicine service for further management and subspecialty consultation/workup for right upper quadrant pain/biliary colic per her request. Consultants/Discussions held with other healthcare providers: -Gastroenterology, Janet Tellez COMMERCIAL RELIEF DRIVER -General Surgery, Dr. Alvarez -Hospitalist, Dr. Brunson Disposition discussion held by myself with: -Patient and significant other at the bedside Diagnosis: 1. Right upper quadrant pain, acute 2. Cholelithiasis, acute 3. Biliary colic, acute Disposition: Admission Quirino Wolfe DO Emergency Medicine Past Med/Surg History Medical History UTI (urinary tract infection) Hyperlipidemia Diet controlled per PCP records Asthma Per records- hx of normal PFTs in the past- uses albuterol only PRN. Encounter for pre-operative examination Osteoarthritis Bilateral primary osteoarthritis of knee Lipodermatosclerosis FOLLOWS WITH DERMATOLOGY Encounter for pre-operative examination Osteoarthritis of right knee Diastolic dysfunction Grade II diastolic dysfunction per 2017 ECHO Gait disturbance Hypothyroidism Mild concentric left ventricular hypertrophy (LVH) Mild and concentric per 2017 ECHO- no heel varnisher Morbid obesity Obstructive sleep apnea cpap PVD (posterior vitreous detachment) NO CURRENT PROBLEMS Hypertension Surgical History Status post total left knee replacement 08/21/2020- Dr. De Guzman History of total knee replacement RIGHT 04/2020 Status post total right knee replacement History of partial hysterectomy History of arthroscopy of right knee History of colonoscopy with polypectomy History of wisdom tooth extraction History of tonsillectomy and adenoidectomy History of dental surgery dental implant History of section, low transverse X 1 History of dilation and curettage Family History Sister Thyroid cancer Breast cancer Family hx colonic polyps Mother Colon cancer Grandmother (Paternal) Stroke Other No family history of adverse response to anesthesia Denies family history of Ovarian cancer Prostate cancer Myocardial infarction Social History Smoking Status: Never smoker Second Hand Exposure: No; Do You Dip or Chew Tobacco: No; Tobacco Cessation Education Requested by Patient: No Hx Alcohol Use: Yes (Rarely ) Alcohol type: wine Hx Substance Use: No Preferred Language: Scottish Communication Ability: Effective Visual Impairment: No Limitations 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: No Beliefs That Will Affect Care: None marital status: Current Living Situation: Spouse current occupational status: employed 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 Other Information That Helps Us Care for You: No Feels Safe at Home: Yes Safety Concerns: Feels Safe At This Time Childhood Exposure to Second-Hand Smoke: No Dental Care, Regularly: Yes Physical Activity Frequency: 3-4 Times per Week Seatbelt Use: always Sunscreen Use: Yes Assistive Devices: Crutches and Walker Allergies Allergies Allergy/AdvReac Type Severity Reaction Status Date / Time Iodinated Contrast Media Allergy Intermediate HIVES Verified 05/17/23 08:56 Sulfa (Sulfonamide Allergy Intermediate Hives Verified 05/17/23 08:56 Antibiotics) doxycycline Allergy Mild blisters Verified 05/17/23 08:56 on skin phentermine AdvReac Intermediate Palpitation Verified 05/17/23 08:56 s Home Meds Home Medications Medication Instructions Recorded Confirmed coenzyme Q10 200 mg capsule 200 mg PO QAM 01/01/19 08/08/23 cholecalciferol (vitamin D3) 50 2,000 units PO QAM 09/18/19 08/08/23 mcg (2,000 unit) capsule vitamin E 268 mg (400 unit) capsule 400 unit PO QAM 03/10/20 08/08/23 Bioflavanoids With Vit C Otc 500 mg PO QAM 07/24/20 08/08/23 biotin 5,000 mcg disintegrating 10,000 mcg PO DAILY 03/16/21 08/08/23 tablet folic acid 1 tab PO DAILY 10/25/21 08/08/23 beta carotene 1 cap PO DAILY 08/08/23 08/08/23 fluticasone 250 mcg-salmeterol 50 1 inh inhalation BID PRN Other 08/08/23 08/08/23 mcg/dose blistr powdr for inhalation (Advair Diskus) Previous Rx's Medication Instructions Recorded amlodipine 5 mg tablet 5 mg PO BID #180 tabs 01/02/20 amoxicillin 500 mg tablet 2,000 mg (4 x 500 mg) PO ONCE #4 07/19/22 tabs albuterol sulfate 90 mcg/actuation 1 inh inhalation QID PRN shortness 10/20/22 aerosol inhaler of breath or wheezing #8.5 grams pentoxifylline 400 mg 400 mg PO BID #180 tabs 10/24/22 tablet,extended release levothyroxine 125 mcg tablet 125 mcg PO DAILY #90 tabs 05/29/23 Results & Data (ED) Vital Signs Vital Signs - 24 hr 08/08/23 15:58 08/08/23 18:13 08/08/23 19:00 Pulse Rate [Apical] 74 76 76 Pulse Rhythm [Apical] Regular Pulse Strength [Apical] Normal Respiratory Rate 18 18 18 Respiratory Effort / Characteristics Non-Labored Spontaneous Non-Labored Spontaneous Respiratory Depth Normal Normal Blood Pressure [Right Arm] 193/76 H 180/68 H 169/70 H Blood Pressure Mean [Right Arm] 115 105 103 Blood Pressure Position [Right Arm] Sitting Pulse Oximetry 95 98 96 Oxygen Delivery Method Room Air Room Air Room Air Laboratory Data 08/09/23 06:17 08/09/23 06:17 Lab Results 08/08/23 08/08/23 08/08/23 Range/Units 11:53 13:06 15:05 WBC 8.64 (4.8-10.8) K/ul RBC 4.61 (4.20-5.40) M/uL Hgb 13.6 (12.0-16.0) g/dl Hct 42.2 (37.0-47.0) % MCV 91.5 (80.0-100.0) fL MCH 29.5 (25.0-34.0) pg MCHC 32.2 (32.0-36.0) g/dL RDW Std Deviation 44.8 (36.4-46.3) fL RDW Coeff of Sandra 13.2 (11.5-14.5) % Plt Count 295 (130-400) K/uL MPV 9.4 (9.4-12.4) fL Immature Gran % (Auto) 0.6 % Neut % (Auto) 81.9 % Lymph % (Auto) 8.3 % [place] % (Auto) 7.9 % Eos % (Auto) 1.0 % Baso % (Auto) 0.3 % Neut # (Auto) 7.07 H (1.40-6.50) K/uL Lymph # (Auto) 0.72 L (1.20-3.40) K/uL [place] # (Auto) 0.68 H (0.11-0.59) K/uL Eos # (Auto) 0.09 (0.00-0.50) K/uL Baso # (Auto) 0.03 (0.00-0.20) K/uL Immature Gran # (Auto) 0.05 (0.01-0.20) K/uL PT 10.5 (9.0-12.0) Seconds INR 1.0 (0.9-1.1) Sodium 137 (136-145) mmol/L Potassium 3.7 (3.5-5.1) mmol/L Chloride 104 (98-107) mmol/L Carbon Dioxide 25 (21-32) mmol/L Anion Gap 8 (3-11) BUN 18 (6-23) mg/dl Creatinine 0.75 (0.6-1.2) mg/dl Est Cr Clr Drug Dosing 100.5 ml/min Est GFR ( Amer) 95.6 ml/min Est GFR (Non-Af Amer) 82.5 ml/min BUN/Creatinine Ratio 24.0 H (10-20) Glucose 108 H (70-99(Fasting)) mg/dl Calcium 9.3 (8.6-10.3) mg/dl Total Bilirubin 0.5 (0.2-1.0) mg/dl AST 23 (13-39) U/L ALT 17 (7-52) U/L Alkaline Phosphatase 73 (34-104) U/L Troponin I High Sens 4.9 6.4 (0-14) pg/ml Total Protein 7.4 (6.0-8.3) gm/dl Albumin 4.2 (3.4-5.0) gm/dl Globulin 3.2 (2.5-4.0) gm/dl Albumin/Globulin Ratio 1.3 (0.9-2) Lipase 26 (11-82) U/L Urine Color Yellow Urine Appearance Clear (Clear) Urine pH 7.0 (4.5-7.5) Ur Specific [place] 1.007 (1.000-1.030) Urine Protein Negative (Negative) Urine Glucose (UA) Negative (Negative) Urine Ketones Negative (Negative) Urine Blood Negative (Negative) Urine Nitrite Negative (Negative) Urine Bilirubin Negative (Negative) Urine Urobilinogen Negative (Negative) Ur Leukocyte Esterase Negative (Negative) Administered Medications Amlodipine Besylate (Amlodipine Besylate 5 Mg Tab) 5 mg PO BID MILAN Stop: 09/07/23 22:00 Last Admin: 08/09/23 09:08 Dose: 5 mg Documented By: Admin: 08/08/23 23:05 Dose: 5 mg Documented By: XIAO Fluticasone/Vilanterol (Fluticasone/Vilanterol 200/25mcg 14 Puffs/Inhaler) 1 puffs INH DAILY MILAN; Protocol Stop: 09/08/23 08:59 Last Admin: 08/09/23 09:10 Dose: Not Given Documented By: MANOJ Heparin Sodium (Porcine) (Heparin Sod 5,000 Unit/0.5 Ml Vial) 5,000 units SQ Q8 MILAN Stop: 09/07/23 22:00 Last Admin: 08/09/23 06:30 Dose: 5,000 units Documented By: Admin: 08/08/23 23:02 Dose: 5,000 units Documented By: XIAO Lactated Ringer's (Lr) 1,000 mls @ 80 mls/hr IV .[id number] MILAN Stop: 08/09/23 21:29 Last Infusion: 08/09/23 11:47 Dose: Infused Documented By: Yesika Admin: 08/08/23 23:06 Dose: 80 mls/hr Documented By: Admin: 08/08/23 22:27 Dose: Not Given Documented By: XIAO Acetaminophen (Ofirmev) 1,000 mg in 100 mls @ 400 mls/hr IV Q8H PRN PRN Reason: pain(1-5),fever,headache Stop: 08/11/23 20:29 Last Infusion: 08/09/23 07:02 Dose: Infused Documented By: Admin: 08/09/23 06:34 Dose: 400 mls/hr Documented By: XIAO Levothyroxine Sodium (Levothyroxine Sodium 125 Mcg Tablet) 125 mcg PO DAILY [facility] Stop: 09/08/23 08:59 Last Admin: 08/09/23 09:08 Dose: 125 mcg Documented By: Yesika Multi-Ingredient Mouthwash/Gargle (First - Mouthwash Blm 119 Ml) 5 ml PO Q6 MILAN Stop: 09/08/23 10:59 Last Admin: 08/09/23 11:42 Dose: 5 ml Documented By: MANOJ Pentoxifylline (Pentoxifylline 400mg Ext Rel Tab) 400 mg PO BID MILAN Stop: 09/07/23 22:00 Last Admin: 08/09/23 09:08 Dose: 400 mg Documented By: [facility] Admin: 08/08/23 23:04 Dose: 400 mg Documented By: XIAO Discontinued Medications Diphenhydramine HCl (Diphenhydramine 50 Mg/Ml Vial) 50 mg IV ONE ONE Stop: 08/08/23 21:35 Last Admin: 08/08/23 18:10 Dose: Not Given Documented By: LES Diphenhydramine HCl (Diphenhydramine 50 Mg/Ml Vial) Confirm Administered Dose 50 mg .ROUTE .STK-MED ONE Stop: 08/08/23 18:07 Last Admin: 08/08/23 18:09 Dose: 50 mg Documented By: LES Methylprednisolone 40 mg/ (Syringe) 0.64 mls @ 1.5 mls/min IV Q4H MILAN Stop: 08/08/23 21:46 Last Admin: 08/08/23 18:56 Dose: Not Given Documented By: MAGGI Sodium Chloride (Nss) 500 mls @ 999 mls/hr IV .Q31M ONE Stop: 08/08/23 20:09 Last Admin: 08/08/23 22:17 Dose: Not Given Documented By: XIAO Acetaminophen (Ofirmev) 1,000 mg in 100 mls @ 400 mls/hr IV NOW STA Stop: 08/08/23 20:42 Last Admin: 08/08/23 22:17 Dose: Not Given Documented By: XIAO Ioversol (Optiray 320 125ml) 113 ml IV ONCE ONE Stop: 08/08/23 18:46 Last Admin: 08/08/23 18:46 Dose: 113 ml Documented By: VALENCIA Ketorolac Tromethamine (Ketorolac Tromethamine 15 Mg/Ml Vial) 15 mg IV NOW ONE Stop: 08/09/23 10:20 Last Admin: 08/09/23 10:45 Dose: 15 mg Documented By: [facility] Methylprednisolone (Methylprednisolone 40 Mg/Ml Vial) 40 mg IV NOW STA Stop: 08/08/23 17:49 Last Admin: 08/08/23 18:09 Dose: 40 mg Documented By: LES Pantoprazole Sodium (Pantoprazole 40 Mg Tab) 40 mg PO ONE ONE Stop: 08/09/23 10:46 Last Admin: 08/09/23 11:26 Dose: 40 mg Documented By: [facility] Imaging Data Radiologist's Impression: Chest X-Ray 08/08/23 11:44 XR chest 1V portable HISTORY: 67 years-old Female Chest pain, nonspecific COMPARISON: 07/20/1999 TECHNIQUE: AP view of the chest FINDINGS: The cardiomediastinal and hilar silhouettes are within normal limits. There is no pneumothorax, pleural effusion or airspace consolidation. The bones of the chest appear grossly intact. IMPRESSION: No acute process. ACT 112: Negative or not required by law. The above report was generated using voice recognition software. It may contain grammatical, syntax or spelling errors. Electronically signed by: Ted Comer M.D. 08/08/2023 12:00 PM Gallbladder Ultrasound 08/08/23 11:50 ABDOMINAL ULTRASOUND, RIGHT UPPER QUADRANT HISTORY: Acute epigastric abdominal pain epigastric pain. COMPARISON: 07/27/2022 FINDINGS: Pancreas: The pancreas demonstrates a normal echotexture. Liver: No hepatic mass. Probable hepatic steatosis. Gallbladder: No definite gallbladder wall thickening or pericholecystic fluid identified, however the instrument engineer reports that the sonographic Payton's sign was positive. Cholelithiasis with wall echo shadow sign. CBD: 0.7 cm. Right kidney: Mild pelvocaliectasis with cortical thinning. IMPRESSION: 1. Cholelithiasis is noted without definite gallbladder wall thickening or pericholecystic fluid. The sonographic Payton's sign was reported as positive. Findings should be correlated clinically to exclude acute cholecystitis. 2. The common bile duct measures within the upper limits of normal at 7 mm. 3. Mild pelvocaliectasis of the right kidney. ACT 112: Negative or not required by law. Electronically signed by: Ted Comer M.D. 08/08/2023 2:48 PM Abdomen/Pelvis CT 08/08/23 17:34 Exam(s): CT ABDOMEN + PELVIS With Contrast IV Amt: 113 cc opti 320 EXAM: CT Abdomen and Pelvis With Intravenous Contrast CLINICAL HISTORY: Reason for exam: RUQ pain. TECHNIQUE: Axial computed tomography images of the abdomen and pelvis with intravenous contrast. CTDI is 28.28 mGy and DLP is 1394.82 mGy-cm. Automated exposure control was utilized for the study. A dose lowering technique was utilized adhering to the principles of ALARA. Moderate limited detail due to body habitus and patient/breathing motion. CONTRAST: Patient received 113 cc opti 320 of IV contrast COMPARISON: CT abdomen pelvis 02/22/13. FINDINGS: Lung bases: Clear. Liver: Fatty. Gallbladder and bile ducts: Peripheral calcified gallstone is now evident. No ductal dilation. Pancreas: No ductal dilation. Spleen: Unremarkable. Adrenals: Unremarkable. Kidneys and ureters: Probable dilated extrarenal pelvis on the right, stable finding. No hydronephrosis. Stomach and bowel: No obstruction. Diverticulosis without acute diverticulitis. No gross wall thickening or mesenteric edema. Appendix: Normal, located in the lateral right upper quadrant, between the liver and lateral abdominal wall. Intraperitoneal space: No free air or fluid. Bones/joints: No acute fracture. Soft tissues: A fat-containing right paraumbilical ventral abdominal wall hernia has developed in the interval, and extends inferior, measuring 5 cm. Vasculature: No aortic aneurysm. Lymph nodes: No enlarged lymph nodes. Bladder: No stones. Reproductive: Unremarkable as visualized. IMPRESSION: 1. No acute intra-abdominal or intrapelvic abnormality. 2. Cholelithiasis, and a fat-containing right ventral abdominal wall hernia and developed in the interval. 3. Normal appendix, incidentally located in the right lateral upper quadrant between the liver and lateral abdominal wall. Electronically signed by: Shu George M.D. 08/08/23 19:20 PM Discharge Plan Visit Data Chief Complaint: Chest Pain ED Provider: Quirino Wolfe Discharge Problem: Biliary colic Patient Disposition: Admitted As Inpatient Discharge Instructions Interventions: ED Discharge Assessment Last Done: 08/08/23 20:45
--- NOTE | 2023-08-08 12:01 | XRay Report ---
XR chest 1V portable HISTORY: 67 years-old Female Chest pain, nonspecific COMPARISON: 07/20/1999 TECHNIQUE: AP view of the chest FINDINGS: The cardiomediastinal and hilar silhouettes are within normal limits. There is no pneumothorax, pleur al effusion or airspace consolidation. The bones of the chest appear grossly intact. IMPRESSION: No acute process. ACT 112: Negative or not required by law. The above report was generated using voice recognition software. It may contain grammatical, syntax o r spelling errors. Electronically signed by: Ted Comer M.D. 08/08/2023 12:00 PM
[2023-08-08 12:13] LABS: Basophils # (auto) 0.03 K/uL (0.00-0.20); Basophils % (auto) 0.3 %; Eosinophils # (auto) 0.09 K/uL (0.00-0.50); Hematocrit (blood only) 42.2 % (37.0-47.0); Hemoglobin 13.6 g/dl (12.0-16.0); Immature Granulocytes # (auto) 0.05 K/uL (0.01-0.20); Immature Granulocytes % (auto) 0.6 %; Lymphocytes # (auto) 0.72 K/uL (1.20-3.40); Lymphocytes % (auto) 8.3 %; Mean Corpuscular Hemoglobin 29.5 pg (25.0-34.0); Mean Corpuscular Hgb Conc 32.2 g/dL (32.0-36.0); Mean Corpuscular Volume 91.5 fL (80.0-100.0); Mean Platelet Volume 9.4 fL (9.4-12.4); Monocytes # (auto) 0.68 K/uL (0.11-0.59); Monocytes % (auto) 7.9 %; Neutrophils # (auto) 7.07 K/uL (1.40-6.50); Neutrophils % (auto) 81.9 %; Platelet Count 295 K/uL (130-400); RDW Coefficient of Variation 13.2 % (11.5-14.5); RDW Standard Deviation 44.8 fL (36.4-46.3); Red Blood Count 4.61 M/uL (4.20-5.40); White Blood Count 8.64 K/ul (4.8-10.8)
[2023-08-08 12:26] LABS: Prothrombin Time 10.5 Seconds (9.0-12.0)
[2023-08-08 12:28] LABS: Albumin Level 4.2 gm/dl (3.4-5.0); Bilirubin,Total 0.5 mg/dl (0.2-1.0); Calcium 9.3 mg/dl (8.6-10.3); Potassium 3.7 mmol/L (3.5-5.1)
[2023-08-08 12:34] LABS: Albumin Globulin Ratio 1.3 (0.9-2); Creatinine Clr Calc Pharmacy 100.5 ml/min; Est GFR (African American) 95.6 ml/min; Est GFR (Non-African American) 82.5 ml/min; Globulin 3.2 gm/dl (2.5-4.0); Total Protein 7.4 gm/dl (6.0-8.3)
[2023-08-08 12:38] LABS: Troponin I High Sensitivity 4.9 pg/ml (0-14)
--- NOTE | 2023-08-08 14:50 | Ultrasound Report ---
ABDOMINAL ULTRASOUND, RIGHT UPPER QUADRANT HISTORY: Acute epigastric abdominal pain epigastric pain. COMPARISON: 07/27/2022 FINDINGS: Pancreas: The pancreas demonstrates a normal echotexture. Liver: No hepatic mass. Probable hepatic steatosis. Gallbladder: No definite gallbladder wall thickening or pericholecystic fluid identified, however the safe and vault service mechanic reports that the sonographic Payton's sign was positive. Cholelithiasis with wall echo s hadow sign. CBD: 0.7 cm. Right kidney: Mild pelvocaliectasis with cortical thinning. IMPRESSION: 1. Cholelithiasis is noted without definite gallbladder wall thickening or pericholecystic fluid. The sonographic Payton's sign was reported as positive. Findings should be correlated clinically to excl ude acute cholecystitis. 2. The common bile duct measures within the upper limits of normal at 7 mm. 3. Mild pelvocaliectasis of the right kidney. ACT 112: Negative or not required by law. Electronically signed by: Ted Comer M.D. 08/08/2023 2:48 PM
[2023-08-08 15:57] LABS: Appearance Urine Clear (Clear); Bilirubin Urine Negative (Negative); Blood Urine Negative (Negative); Color Urine Yellow; Glucose Urine UA Negative (Negative); Ketones Urine Negative (Negative); Leukocyte Esterase Urine Negative (Negative); Nitrite Urine Negative (Negative); Protein Urine Negative (Negative); Specific Gravity Urine 1.007 (1.000-1.030); Urobilinogen Urine Negative (Negative)
[2023-08-08] MEDS ORDERED: methylPREDNISolone 40 MG in SYRINGE 0 ML IV SCH (17:45)
[2023-08-08] MEDS ORDERED: diphenhydrAMINE 50 MG/ML VIAL ONE (18:06)
[2023-08-08] MEDS ORDERED: OPTIRAY 320 125ml IV ONE (18:45)
--- NOTE | 2023-08-08 19:21 | CT Scan Report ---
Exam(s): CT ABDOMEN + PELVIS With Contrast IV Amt: 113 cc opti 320 EXAM: CT Abdomen and Pelvis With Intravenous Contrast CLINICAL HISTORY: Reason for exam: RUQ pain. TECHNIQUE: Axial computed tomography images of the abdomen and pelvis with intravenous contrast. CTDI is 28.28 mGy and DLP is 1394.82 mGy-cm. Automated exposure control was utilized for the study. A dose lowering technique was utilized adhering to the principles of ALARA. Moderate limited detail due to body habitus and patient/breathing motion. CONTRAST: Patient received 113 cc opti 320 of IV contrast COMPARISON: CT abdomen pelvis 02/22/13. FINDINGS: Lung bases: Clear. Liver: Fatty. Gallbladder and bile ducts: Peripheral calcified gallstone is now evident. No ductal dilation. Pancreas: No ductal dilation. Spleen: Unremarkable. Adrenals: Unremarkable. Kidneys and ureters: Probable dilated extrarenal pelvis on the right, stable finding. No hydronephrosis. Stomach and bowel: No obstruction. Diverticulosis without acute diverticulitis. No gross wall thickening or mesenteric edema. Appendix: Normal, located in the lateral right upper quadrant, between the liver and lateral abdominal wall. Intraperitoneal space: No free air or fluid. Bones/joints: No acute fracture. Soft tissues: A fat-containing right paraumbilical ventral abdominal wall hernia has developed in the interval, and extends inferior, measuring 5 cm. Vasculature: No aortic aneurysm. Lymph nodes: No enlarged lymph nodes. Bladder: No stones. Reproductive: Unremarkable as visualized. IMPRESSION: 1. No acute intra-abdominal or intrapelvic abnormality. 2. Cholelithiasis, and a fat-containing right ventral abdominal wall hernia and developed in the interval. 3. Normal appendix, incidentally located in the right lateral upper quadrant between the liver and lateral abdominal wall. Electronically signed by: Shu George M.D. 08/08/23 19:20 PM
[2023-08-08] MEDS ORDERED: SODIUM CHLORIDE 0.9% 500 ML IV ONE (19:39)
--- NOTE | 2023-08-08 20:00 | Surgery Consultation ---
Date of Consultation August 08, 2023 Assessment & Plan (1) Biliary colic: I discussed with the treating emergency room physician and the patient is being admitted on the hospital service. From surgical perspective we recommend the following: I discussed with the patient that she may be suffering from biliary colic as she is noted to have gallstones on her imaging. However, in the absence of cholecystitis we do not have a definitive indication for surgery intervention at this time. I did inform her that would be preferable to obtain a HIDA scan prior to entertaining any surgical intervention. I offered the patient admission to the hospital with the likelihood of obtaining a HIDA scan on 08/09/2023 versus discharge to home this evening with [facility]. I did discuss with the patient that I cannot predict in any reliable fashion if she would have recurrence of her pain. Patient notes that she does feel uncomfortable going home due to the level of pain she had upon presentation and we we are therefore going to have the patient admitted to the hospital and obtain a HIDA scan on 08/09/2023 Analgesics to be provided Antiemetics to be provided Serial labs to be followed IV fluids to be provided for hydration In the absence of cholecystitis we will withhold antibiotics for the present time Additional recommendations to be forthcoming based on her clinical course as unfolds as well as results of HIDA scan. Supervising Physician Co-Signing Physician Notes I personally saw and evaluated the patient with Caden Carey PA-C and agree with the assessment and plan. 67 yo female with gallstones Her US and CT images and results were personally viewed and interpreted by myself, she has no signs of inflammation on either test She has a normal WBC and without fever or tachycardia Its unlikely she has cholecystitis and we are unable to obtain a HIDA scan due to Nuc med department not being open Would trial a diet from surgical standpoint and if she can tolerate this she can be discharged History of Present Illness Reason for Consultation: Cholelithiasis History of Present Illness This is a 67-year-old female who presented the emergency department via ambulance secondary to severe abdominal pain. Patient says that she has a known history of gallstones. She notes that she will get intermittent abdominal pain from time to time somewhat correlating with meals depending on what she eats. She does note that she has been having abdominal pain greatest in the right upper quadrant and an on and off fashion for several weeks but the pain became much more severe earlier today and she therefore presented to the emergency department. She noted that the pain radiated to her chest into her back. She did not note any palliative factors other than medicines administered in the emergency department. She did have nausea without any emesis. She denies any fevers, shakes, or chills. Patient says that she has had prior abdominal surgeries in the form of a and hysterectomy. Since arrival to the hospital the patient has had labs and imaging which independent reviewed. A chest x-ray showed no evidence of pneumonia. Patient did have a gallbladder ultrasound that showed no definite gallbladder wall thickening or pericholecystic fluid. Cholelithiasis was noted and there was reportedly a sonographic Payton sign noted. The common bile duct was at the upper limits of normal at 7 mm. Patient also had a CT scan of the abdomen and pelvis that showed gallstones and a fat-containing right ventral abdominal wall hernia. There not appear to be any biliary ductal dilatation on this study. Labs include a CBC her white blood cell count, hemoglobin, hematocrit, and platelet count were normal. Chemistry profile showed sodium and potassium along with the BUN and creatinine were normal. Patient had no elevation of her LFTs or lipase. Urinalysis was not indicative of infection. An EKG showed normal sinus rhythm. There did not appear to be any changes indicative of acute ischemia. Patient's past records were reviewed and patient did have an abdominal ultrasound on 07/27/2022. This study showed the patient had cholelithiasis without evidence of cholecystitis. At the time of my interview the patient was resting comfortably in bed and she was in no distress. She did note that her pain was not completely resolved but was markedly improved from time of arrival. Allergies Allergy/AdvReac Type Severity Reaction Status Date / Time Iodinated Contrast Media Allergy Intermediate HIVES Verified 05/17/23 08:56 Sulfa (Sulfonamide Allergy Intermediate Hives Verified 05/17/23 08:56 Antibiotics) doxycycline Allergy Mild blisters Verified 05/17/23 08:56 on skin phentermine AdvReac Intermediate Palpitation Verified 05/17/23 08:56 s Home Medications Medication Instructions Recorded Confirmed Type coenzyme Q10 200 mg capsule 200 mg PO QAM 01/01/19 08/08/23 History cholecalciferol (vitamin D3) 50 2,000 units PO QAM 09/18/19 08/08/23 History mcg (2,000 unit) capsule amlodipine 5 mg tablet 5 mg PO BID #180 tabs 01/02/20 08/08/23 Rx vitamin E 268 mg (400 unit) capsule 400 unit PO QAM 03/10/20 08/08/23 History Bioflavanoids With Vit C Otc 500 mg PO QAM 07/24/20 08/08/23 History biotin 5,000 mcg disintegrating 10,000 mcg PO DAILY 03/16/21 08/08/23 History tablet folic acid 1 tab PO DAILY 10/25/21 08/08/23 History amoxicillin 500 mg tablet 2,000 mg (4 x 500 mg) PO ONCE #4 07/19/22 08/08/23 Rx tabs albuterol sulfate 90 mcg/actuation 1 inh inhalation QID PRN shortness 10/20/22 08/08/23 Rx aerosol inhaler of breath or wheezing #8.5 grams pentoxifylline 400 mg 400 mg PO BID #180 tabs 10/24/22 08/08/23 Rx tablet,extended release levothyroxine 125 mcg tablet 125 mcg PO DAILY #90 tabs 05/29/23 08/08/23 Rx beta carotene 1 cap PO DAILY 08/08/23 08/08/23 History fluticasone 250 mcg-salmeterol 50 1 inh inhalation BID PRN Other 08/08/23 08/08/23 History mcg/dose blistr powdr for inhalation (Advair Diskus) Patient History Medical History UTI (urinary tract infection) Hyperlipidemia Diet controlled per PCP records Asthma Per records- hx of normal PFTs in the past- uses albuterol only PRN. 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 De Guzman History of total knee replacement RIGHT 04/2020 Status post total right knee replacement History of partial hysterectomy History of arthroscopy of right knee History of colonoscopy with polypectomy History of wisdom tooth extraction History of tonsillectomy and adenoidectomy History of dental surgery dental implant History of section, low transverse X 1 History of dilation and curettage Family History Sister Thyroid cancer Breast cancer Family hx colonic polyps Mother Colon cancer Grandmother (Paternal) Stroke Other No family history of adverse response to anesthesia Denies family history of Ovarian cancer Prostate cancer Myocardial infarction Social History Smoking Status: Never smoker Second Hand Exposure: No; Do You Dip or Chew Tobacco: No; Tobacco Cessation Education Requested by Patient: No Hx Alcohol Use: Yes (Rarely ) Alcohol type: wine Hx Substance Use: No Preferred Language: Swedish Communication Ability: Effective Visual Impairment: No Limitations Teller Manager Required: No Beliefs That Will Affect Care: None marital status: Current Living Situation: Spouse current occupational status: employed current occupation: [employer] Other Information That Helps Us Care for You: No Feels Safe at Home: Yes Safety Concerns: Feels Safe At This Time Childhood Exposure to Second-Hand Smoke: No Dental Care, Regularly: Yes Physical Activity Frequency: 3-4 Times per Week Seatbelt Use: always Sunscreen Use: Yes Assistive Devices: Crutches and Walker Review of Systems Constitutional: no fever and no chills Ear, Nose, Mouth, Throat: no hearing loss Respiratory: no cough and no dyspnea Cardiovascular: + chest pain (Radiating from abdomen) Gastrointestinal: as per Subjective / HPI Genitourinary: no dysuria Musculoskeletal: + back pain (Radiating from abdomen) Integumentary: no rash Neurologic: no localized weakness Physical Exam Constitutional: WD/WN, vitals as above + obese Eyes: + anicteric sclerae ENMT: Ears: no hearing impairment and no external ear abnormality Mouth: no oropharynx abnormality Neck: trachea midline Respiratory: normal respiratory effort; no respiratory distress and no labored breathing Breath sounds somewhat decreased at bases, likely due to body habitus Cardiovascular: Rate/Rhythm: regular rate and regular rhythm Gastrointestinal (Abdomen): Abdomen is rotund but soft. There is no rebound tenderness or guarding. The patient did have pain with palpation in the right upper quadrant. I was unable to palpate any hernias. Musculoskeletal: No calf tenderness Skin: no rashes Neurologic: moves all extremities Psychiatric: A+Ox3, euthymic affect Results & Data Vital Signs (Past 12 Hours) Vital Signs Temp Pulse Pulse Resp BP BP Pulse Ox 08/08/23 19:00 76 18 169/70 H 96 08/08/23 18:13 76 18 180/68 H 98 08/08/23 15:58 74 18 193/76 H 95 08/08/23 13:29 74 20 178/71 H 96 08/08/23 13:07 80 08/08/23 11:52 90 20 99 08/08/23 11:52 90 20 196/86 H 99 08/08/23 11:52 99 08/08/23 11:52 36.8 C 90 20 196/86 H 99 O2 Del Method 08/08/23 19:00 Room Air 08/08/23 18:13 Room Air 08/08/23 15:58 Room Air 08/08/23 13:29 Room Air 08/08/23 13:07 08/08/23 11:52 Room Air 08/08/23 11:52 Room Air 08/08/23 11:52 Room Air 08/08/23 11:52 Room Air PG Care Time/CCT Total # of Minutes Spent Total Time Spent with Patient: Total time spent is greater than 50% in coordination of care (as documented) at patient's floor/unit and/or counseling patient: Coding Level of Care Code 19722 INT INP/OBS CARE 3/75MIN Diagnoses Biliary colic K80.50
--- NOTE | 2023-08-08 20:10 | History & Physical Report ---
Date of Service August 08, 2023 Assessment & Plan (1) Biliary colic: Plan: -Admit to med/surge -Presented with acute onset of epigastric/RUQ pain after eating breakfast this am -Cardiac workup is unremarkable -RUQ US and CT of the abd/pelvis w/IV con were negative for acute findings -General surgery has evaluated the patient and will be ordering a HIDA scan for further evaluation -Based on HIDA results they will determine need for cholecystectomy -Will keep NPO as HIDA scan will not be obtained until tomorrow -Light IV hydration overnight while NPO -Will give 1gm IV tylenol now, continue with tylenol and morphine for pain -Monitor on pulse oximetry, prn narcan for oversedation -SQ heparin for DVT PPX -AM CBC, CMP, mag, PT/INR (2) Obstructive sleep apnea: Plan: -HS CPAP ordered (3) Hypothyroidism: Plan: -Continue levothyroxine (4) Essential hypertension: Plan: -Stable -Continue amlodipine Plan The patient was discussed with Dr. Brunson at the time of the admission History of Present Illness Chief Complaint: chest/abd pain Primary Care Provider: Danna Plaza MD Zuleyka is a 67 year old female with a PMH significant for morbid obesity, HTN, hypothyroidism who presented to the [facility] ED on 08/08/23 with complaints of Chest/RUQ pain. She was noted to be hypertensive at 193/76 but otherwise remained stable in the ED. Labs including CBC, CMP, 2 high sen troponin, and UA were unremarkable. Chest xray was negative for acute findings. Gallbladder US was read as "1. Cholelithiasis is noted without definite gallbladder wall thickening or pericholecystic fluid. The sonographic Payton's sign was reported as positive. Findings should be correlated clinically to exclude acute cholecystitis. 2. The common bile duct measures within the upper limits of normal at 7 mm. 3. Mild pelvocaliectasis of the right kidney.". The ED spoke with GI who initially recommended MRCP for further evaluation. Unfortunately the patient was unable to tolerate the MRCP was she was too claustrophobic and refused medication prior. GI then recommended a CT of the abd/pelvis w/IV con. The patient was premedicated prior for her hx of contrast allergy. CT of the abd/pelvis w/IV con was read as "1. No acute intra-abdominal or intrapelvic abnormality. 2. Cholelithiasis, and a fat-containing right ventral abdominal wall hernia and developed in the interval. 3. Normal appendix, incidentally located in the right lateral upper quadrant between the liver and lateral abdominal wall.". The patient was too anxious to return home for fear of recurrent severe abdominal pain. General Surgery was consulted and will be obtaining a HIDA with plans for possible cholecystectomy during this admission. Prior to admission the patient was given 500 mL NSS, 50 mg IV benadryl, and 40 mg IV solu-medrol. AT the time of the exam the patient was lying in bed in no acute distress with her sitting bedisde. She states that she experienced a sharp/stabbing epigastric/RUQ abdominal pain shortly after eating breakfast this am. She had two eggs, a piece of toast, and a cup of coffee to her symptoms starting. She was concerned she was having a heart attack and called EMS. She states that she has a previous history of biliary colic and was previously evaluated by general surgery and offered elective cholecystectomy. This is the first episode of pain since she was last evaluated. She denies recent fever, chills, cough, SOB, nausea, vomiting, dysuria, hematuria, melena, LE swelling, and recent trauma. She is a full code and wishes for her to make medical decisions for her if she cannot make them herself. Please refer to Dr. Brunson's attestation for any changes to the treatment plan Allergies Allergy/AdvReac Type Severity Reaction Status Date / Time Iodinated Contrast Media Allergy Intermediate HIVES Verified 05/17/23 08:56 Sulfa (Sulfonamide Allergy Intermediate Hives Verified 05/17/23 08:56 Antibiotics) doxycycline Allergy Mild blisters Verified 05/17/23 08:56 on skin phentermine AdvReac Intermediate Palpitation Verified 05/17/23 08:56 s Home Medications Medication Instructions Recorded Confirmed Type coenzyme Q10 200 mg capsule 200 mg PO QAM 01/01/19 08/08/23 History cholecalciferol (vitamin D3) 50 2,000 units PO QAM 09/18/19 08/08/23 History mcg (2,000 unit) capsule amlodipine 5 mg tablet 5 mg PO BID #180 tabs 01/02/20 08/08/23 Rx vitamin E 268 mg (400 unit) capsule 400 unit PO QAM 03/10/20 08/08/23 History Bioflavanoids With Vit C Otc 500 mg PO QAM 07/24/20 08/08/23 History biotin 5,000 mcg disintegrating 10,000 mcg PO DAILY 03/16/21 08/08/23 History tablet folic acid 1 tab PO DAILY 10/25/21 08/08/23 History amoxicillin 500 mg tablet 2,000 mg (4 x 500 mg) PO ONCE #4 07/19/22 08/08/23 Rx tabs albuterol sulfate 90 mcg/actuation 1 inh inhalation QID PRN shortness 10/20/22 08/08/23 Rx aerosol inhaler of breath or wheezing #8.5 grams pentoxifylline 400 mg 400 mg PO BID #180 tabs 10/24/22 08/08/23 Rx tablet,extended release levothyroxine 125 mcg tablet 125 mcg PO DAILY #90 tabs 05/29/23 08/08/23 Rx beta carotene 1 cap PO DAILY 08/08/23 08/08/23 History fluticasone 250 mcg-salmeterol 50 1 inh inhalation BID PRN Other 08/08/23 08/08/23 History mcg/dose blistr powdr for inhalation (Advair Diskus) Past Med/Surg History Medical History UTI (urinary tract infection) Hyperlipidemia Diet controlled per PCP records Asthma Per records- hx of normal PFTs in the past- uses albuterol only PRN. Encounter for pre-operative examination Osteoarthritis Bilateral primary osteoarthritis of knee Lipodermatosclerosis FOLLOWS WITH DERMATOLOGY Encounter for pre-operative examination Osteoarthritis of right knee Diastolic dysfunction Grade II diastolic dysfunction per 2017 ECHO Gait disturbance Hypothyroidism Mild concentric left ventricular hypertrophy (LVH) Mild and concentric per 2017 ECHO- no rn staffing Morbid obesity Obstructive sleep apnea cpap PVD (posterior vitreous detachment) NO CURRENT PROBLEMS Hypertension Surgical History Status post total left knee replacement 08/21/2020- Dr. De Guzman History of total knee replacement RIGHT 04/2020 Status post total right knee replacement History of partial hysterectomy History of arthroscopy of right knee History of colonoscopy with polypectomy History of wisdom tooth extraction History of tonsillectomy and adenoidectomy History of dental surgery dental implant History of section, low transverse X 1 History of dilation and curettage Family History Sister Thyroid cancer Breast cancer Family hx colonic polyps Mother Colon cancer Grandmother (Paternal) Stroke Other No family history of adverse response to anesthesia Denies family history of Ovarian cancer Prostate cancer Myocardial infarction Social History Smoking Status: Never smoker Second Hand Exposure: No; Do You Dip or Chew Tobacco: No; Tobacco Cessation Education Requested by Patient: No Hx Alcohol Use: Yes (Rarely ) Alcohol type: wine Hx Substance Use: No Preferred Language: Lao Communication Ability: Effective Visual Impairment: No Limitations Balance Truer Required: No Beliefs That Will Affect Care: None marital status: Current Living Situation: Spouse current occupational status: employed current occupation: [employer] Other Information That Helps Us Care for You: No Feels Safe at Home: Yes Safety Concerns: Feels Safe At This Time Childhood Exposure to Second-Hand Smoke: No Dental Care, Regularly: Yes Physical Activity Frequency: 3-4 Times per Week Seatbelt Use: always Sunscreen Use: Yes Assistive Devices: Crutches and Walker Physical Exam Physical Exam: Physical Exam: General: In no acute distress, stated age, morbidly obese, non-toxic appearing HEENT: Normocephalic, atraumatic, no scleral icterus, pupils around round, symmetrical, and reactive to light, moist mucus membranes, trachea midline, no thyromegaly Chest/Pulm: No respiratory distress, symmetrical chest expansion, clear breath sounds throughout Cardiac: RRR, no murmurs noted Abdomen: Negative for ascites and bruising, normoactive bowel sounds, soft, tender to palpation in the epigastric and RUQ regions without rebound tenderness Musculoskeletal: Symmetrical and without signs of acute trauma, upper and lower extremities with full ROM, no atrophy, spasticity, or flaccidity Extremities: Radial, dorsalis pedis, and posterior tibial pulses are intact and symmetrical, chronic venous insufficiency noted in the BL LE's Skin: Warm, dry, no rashes , lesions, or scars noted Neuro: Alert and oriented to person, place, month, year, and president, no focal defects, no tremors noted Psych: No acute distress, calm and cooperative during the exam Results & Data Results & Data Vital Signs (Past 12 Hours) Vital Signs Temp Pulse Pulse Resp BP BP Pulse Ox 08/08/23 19:00 76 18 169/70 H 96 08/08/23 18:13 76 18 180/68 H 98 08/08/23 15:58 74 18 193/76 H 95 08/08/23 13:29 74 20 178/71 H 96 08/08/23 13:07 80 08/08/23 11:52 90 20 99 08/08/23 11:52 90 20 196/86 H 99 08/08/23 11:52 99 08/08/23 11:52 36.8 C 90 20 196/86 H 99 O2 Del Method 08/08/23 19:00 Room Air 08/08/23 18:13 Room Air 08/08/23 15:58 Room Air 08/08/23 13:29 Room Air 08/08/23 13:07 08/08/23 11:52 Room Air 08/08/23 11:52 Room Air 08/08/23 11:52 Room Air 08/08/23 11:52 Room Air Laboratory Results Abnormal lab results 08/08/23 Range/Units 11:53 Neut # (Auto) 7.07 H (1.40-6.50) K/uL Lymph # (Auto) 0.72 L (1.20-3.40) K/uL Winston # (Auto) 0.68 H (0.11-0.59) K/uL BUN/Creatinine Ratio 24.0 H (10-20) Glucose 108 H (70-99(Fasting)) mg/dl Diagnostic Findings Chest X-Ray 08/08/23 11:44 XR chest 1V portable HISTORY: 67 years-old Female Chest pain, nonspecific COMPARISON: 07/20/1999 TECHNIQUE: AP view of the chest FINDINGS: The cardiomediastinal and hilar silhouettes are within normal limits. There is no pneumothorax, pleural effusion or airspace consolidation. The bones of the chest appear grossly intact. IMPRESSION: No acute process. ACT 112: Negative or not required by law. The above report was generated using voice recognition software. It may contain grammatical, syntax or spelling errors. Electronically signed by: Ted Comer M.D. 08/08/2023 12:00 PM Gallbladder Ultrasound 08/08/23 11:50 ABDOMINAL ULTRASOUND, RIGHT UPPER QUADRANT HISTORY: Acute epigastric abdominal pain epigastric pain. COMPARISON: 07/27/2022 FINDINGS: Pancreas: The pancreas demonstrates a normal echotexture. Liver: No hepatic mass. Probable hepatic steatosis. Gallbladder: No definite gallbladder wall thickening or pericholecystic fluid identified, however the twister hand reports that the sonographic Payton's sign was positive. Cholelithiasis with wall echo shadow sign. CBD: 0.7 cm. Right kidney: Mild pelvocaliectasis with cortical thinning. IMPRESSION: 1. Cholelithiasis is noted without definite gallbladder wall thickening or pericholecystic fluid. The sonographic Payton's sign was reported as positive. Findings should be correlated clinically to exclude acute cholecystitis. 2. The common bile duct measures within the upper limits of normal at 7 mm. 3. Mild pelvocaliectasis of the right kidney. ACT 112: Negative or not required by law. Electronically signed by: Ted Comer M.D. 08/08/2023 2:48 PM Abdomen/Pelvis CT 08/08/23 17:34 Exam(s): CT ABDOMEN + PELVIS With Contrast IV Amt: 113 cc opti 320 EXAM: CT Abdomen and Pelvis With Intravenous Contrast CLINICAL HISTORY: Reason for exam: RUQ pain. TECHNIQUE: Axial computed tomography images of the abdomen and pelvis with intravenous contrast. CTDI is 28.28 mGy and DLP is 1394.82 mGy-cm. Automated exposure control was utilized for the study. A dose lowering technique was utilized adhering to the principles of ALARA. Moderate limited detail due to body habitus and patient/breathing motion. CONTRAST: Patient received 113 cc opti 320 of IV contrast COMPARISON: CT abdomen pelvis 02/22/13. FINDINGS: Lung bases: Clear. Liver: Fatty. Gallbladder and bile ducts: Peripheral calcified gallstone is now evident. No ductal dilation. Pancreas: No ductal dilation. Spleen: Unremarkable. Adrenals: Unremarkable. Kidneys and ureters: Probable dilated extrarenal pelvis on the right, stable finding. No hydronephrosis. Stomach and bowel: No obstruction. Diverticulosis without acute diverticulitis. No gross wall thickening or mesenteric edema. Appendix: Normal, located in the lateral right upper quadrant, between the liver and lateral abdominal wall. Intraperitoneal space: No free air or fluid. Bones/joints: No acute fracture. Soft tissues: A fat-containing right paraumbilical ventral abdominal wall hernia has developed in the interval, and extends inferior, measuring 5 cm. Vasculature: No aortic aneurysm. Lymph nodes: No enlarged lymph nodes. Bladder: No stones. Reproductive: Unremarkable as visualized. IMPRESSION: 1. No acute intra-abdominal or intrapelvic abnormality. 2. Cholelithiasis, and a fat-containing right ventral abdominal wall hernia and developed in the interval. 3. Normal appendix, incidentally located in the right lateral upper quadrant between the liver and lateral abdominal wall. Electronically signed by: Shu George M.D. 08/08/23 19:20 PM ECG Additional Comments: Normal sinus rhythm Normal ECG When compared with ECG of 20-APR-2020 12:44, No significant change was found Confirmed by Jero Hernandez ([id number]) on 08/08/2023 12:25:42 PM Code Status & VTE Plan Code Status Full code VTE Prophylaxis Plan VTE Prophylaxis will be ordered: Yes Supervising Physician Co-Signing Physician Notes Attending addendum: I have physically seen this patient, have supervised the SHERRY's activities, and agree with the H&P unless as otherwise noted. Assessment and Plan: Biliary colic- Negative cardiac workup Gallbladder ultrasound noted to have a positive Payton sign and common bile duct upper limits of normal at [address] of abdomen pelvis notes cholelithiasis Seen by general surgery, who is ordering a HIDA scan NPO except medications Acetaminophen 1 g IV every 8 hours as needed for mild pain or fever Morphine sulfate 2 mg IV every 4 hours as needed for moderate to severe pain Follow serial laboratories MANUEL- Continue CPAP at bedtime Hypertension- Continue amlodipine with hold parameters PG Care Time/CCT Total # of Minutes Spent Total Time Spent with Patient: Total time spent is greater than 50% in coordination of care (as documented) at patient's floor/unit and/or counseling patient: Coding [place] [address] INT INP/OBS CARE 3/75MIN Patient Type Established Medical Decision Making High Complexity Diagnoses Biliary colic K80.50 Obstructive sleep apnea G47.33 Acquired hypothyroidism E03.9 Hypothyroidism type: acquired Essential hypertension I10 (3) Hypothyroidism Hypothyroidism type: acquired Qualified Code(s): E03.9 - Hypothyroidism, unspecified
[2023-08-08] MEDS ORDERED: ACETAMINOPHEN 1,000 MG/100 ML VIAL IV STA (20:28)
[2023-08-08] MEDS ORDERED: ACETAMINOPHEN 1,000 MG/100 ML VIAL IV PRN (20:30)
[2023-08-08] MEDS ORDERED: MoRPHine SULFATE 2 MG/ML CARP IV PRN (20:45)
[2023-08-08] MEDS ORDERED: NALOXONE HCL 0.4 MG/1 ML VIAL/CARP IV PRN (20:49)
[2023-08-08] MEDS ORDERED: diphenhydrAMINE 50 MG/ML VIAL IV ONE (21:34)
[2023-08-08] MEDS ORDERED: ALBUTEROL HFA 8 GM INHALER INH PRN (22:01)
[2023-08-08] MEDS: LACTATED RINGER'S 1,000 ML IV SCH ×2 (22:27→23:06)
[2023-08-08] MEDS: HEPARIN SOD 5,000 UNIT/0.5 ML VIAL SQ SCH (23:02)
[2023-08-08] MEDS: PENTOXIFYLLINE 400MG EXT REL TAB PO SCH (23:04)
[2023-08-08] MEDS: amLODIPine BESYLATE 5 MG TAB PO SCH (23:05)
[2023-08-09] MEDS: HEPARIN SOD 5,000 UNIT/0.5 ML VIAL SQ SCH ×3 (06:30→20:56)
[2023-08-09 07:00] LABS: Basophils # (auto) 0.02 K/uL (0.00-0.20); Basophils % (auto) 0.2 %; Hematocrit (blood only) 39.7 % (37.0-47.0); Hemoglobin 13.5 g/dl (12.0-16.0); Immature Granulocytes # (auto) 0.03 K/uL (0.01-0.20); Immature Granulocytes % (auto) 0.4 %; Lymphocytes # (auto) 0.75 K/uL (1.20-3.40); Lymphocytes % (auto) 9.2 %; Mean Corpuscular Hemoglobin 30.1 pg (25.0-34.0); Mean Corpuscular Volume 88.4 fL (80.0-100.0); Mean Platelet Volume 9.3 fL (9.4-12.4); Monocytes # (auto) 0.29 K/uL (0.11-0.59); Monocytes % (auto) 3.6 %; Neutrophils # (auto) 7.04 K/uL (1.40-6.50); Neutrophils % (auto) 86.6 %; Platelet Count 314 K/uL (130-400); RDW Coefficient of Variation 13.4 % (11.5-14.5); RDW Standard Deviation 43.8 fL (36.4-46.3); Red Blood Count 4.49 M/uL (4.20-5.40); White Blood Count 8.13 K/ul (4.8-10.8)
[2023-08-09 07:33] LABS: Prothrombin Time 11.1 Seconds (9.0-12.0)
[2023-08-09 07:35] LABS: Albumin Level 3.9 gm/dl (3.4-5.0); Bilirubin,Total 0.5 mg/dl (0.2-1.0); Calcium 9.3 mg/dl (8.6-10.3); Potassium 3.9 mmol/L (3.5-5.1)
[2023-08-09 07:41] LABS: Albumin Globulin Ratio 1.4 (0.9-2); BUN Creatinine Ratio 22.2 (10-20); Creatinine Clr Calc Pharmacy 119.7 ml/min; Est GFR (African American) 107.6 ml/min; Est GFR (Non-African American) 92.8 ml/min; Globulin 2.8 gm/dl (2.5-4.0); Total Protein 6.7 gm/dl (6.0-8.3)
--- NOTE | 2023-08-09 08:10 | Hospitalist Progress Note ---
Date of Service August 09, 2023 Assessment & Plan (1) Biliary colic: Plan: -Presented with acute onset of epigastric/RUQ pain after eating breakfast morning of admission -Cardiac workup is unremarkable, pain was positional ,Echo negative, troponin x2 negative ESR in AM 08/10 -RUQ US and CT of the abd/pelvis w/IV con were negative for acute findings -General surgery has evaluated the patient and will be ordering a HIDA scan for further evaluation, however nuclear imaging is down, cannot tolerate MRCP due to claustrophobia GI medicine thinks this is gall bladder related pain -pain best relieved with IV toradol -SQ heparin for DVT PPX (2) Obstructive sleep apnea: Plan: -HS CPAP ordered (3) Hypothyroidism: Plan: -Continue levothyroxine (4) Essential hypertension: Plan: -Stable -Continue amlodipine (5) Lipodermatosclerosis: Plan: continues on pentoxifylline Admission and Anticipated Discharge Date Admission Date: August 08, 2023 Subjective pt with atypical pain of 2 types,Right upper quadrant pain seems less reproducible of influenced by movement, left chest pain is pleuritic and does rediate to back, at time worse with laying down and better sitting up pain relieved with toradol Physical Exam Physical Exam: does not appear in moderte distress cardiac is regular without rub lungs are clear abd is nabs, soft tender RUQ but no rebound or guarding or hepatomegaly Results & Data Results & Data Vital Signs (Past 12 Hours) Vital Signs Temp Pulse Resp BP Pulse Ox O2 Del Method 08/09/23 07:30 97.7 F 65 16 151/71 H 95 Room Air 08/08/23 23:34 Room Air 08/08/23 21:44 98.1 F 77 18 178/76 H 94 Room Air Laboratory Results Reviewed CBC reviewed comprehensive metabolic panel reviewed coagulation panel PG Care Time/CCT Total # of Minutes Spent Total Time Spent with Patient: Total time spent is greater than 50% in coordination of care (as documented) at patient's floor/unit and/or counseling patient: Coding Level of Care Code 82607 SUB INP/OBS CARE 2/35MIN Diagnoses Biliary colic K80.50 Obstructive sleep apnea G47.33 Acquired hypothyroidism E03.9 Hypothyroidism type: acquired Essential hypertension I10 Lipodermatosclerosis I83.10 (3) Hypothyroidism Hypothyroidism type: acquired Qualified Code(s): E03.9 - Hypothyroidism, unspecified
[2023-08-09] MEDS: LEVOTHYROXINE SODIUM 125 MCG TABLET PO SCH (09:08)
[2023-08-09] MEDS: amLODIPine BESYLATE 5 MG TAB PO SCH ×2 (09:08→20:53)
[2023-08-09] MEDS: PENTOXIFYLLINE 400MG EXT REL TAB PO SCH ×2 (09:08→20:53)
[2023-08-09] MEDS: FLUTICASONE/VILANTEROL 200/25MCG 14 PUFFS/INHALER INH SCH ×2 (09:09→09:10)
[2023-08-09] MEDS ORDERED: KETOROLAC TROMETHAMINE 15 MG/ML VIAL IV ONE (10:19)
--- NOTE | 2023-08-09 10:30 | Gastrointestinal Consultation ---
Date of Consultation August 09, 2023 Assessment & Plan (1) Biliary colic: (2) RUQ pain: Plan Discussed case with Dr. Knowles who helped advise on plan. Suspect gallbladder etiology for symptoms. - start protonix 40mg po bid for any possible component of gastritis/duodenitis. - patient is not interested in an EGD and we don't feel this is needed at this time. - surgery is following. Supervising Physician Co-Signing Physician Notes I saw the patient and agree with the findings as documented by ANTONIETA Bearden History of Present Illness Reason for Consultation: RUQ pain, cholelithiasis. Requesting Physician: Quirino Wolfe DO Attending Physician: Sunil Almonte MD History of Present Illness Patient is a 67 year old female with history of morbid obesity with BMI greater than 60, who presented to the emergency department with chief complaint of chest pain and shortness of breath. She tells me that she was very concerned for a heart attack so she came to the ED. She tells me she has had a history of gallstones in the past and has had issues with "attacks" in the past that she has always chalked up to her gallbladder. Upon evaluation she had an US 08/08/23 showing cholelithiasis and positive anderson sign. cbd was 7mm. she was recommended to have an MRCP but could not have it done due to anxiety about the test. She did undergo CT abdomen/pelvis with no acute intraabdominal/intrapelvic abnormality. there was cholelithiasis with ventral wall hernia. Surgery is on board and following with the patient. HIDA was recommended but could not be done due to unable to perform test at this time. Patient tells me that she has been feeling better since admission. still some pain in the RUQ that she rates as a 2/10. she still is having pain into her chest. she had some nausea prior to admission but this as resolved. no emesis. she denies heartburn, changes in bowels, blood in stools, melena. LFTs have been normal. Allergies Allergy/AdvReac Type Severity Reaction Status Date / Time Iodinated Contrast Media Allergy Intermediate HIVES Verified 05/17/23 08:56 Sulfa (Sulfonamide Allergy Intermediate Hives Verified 05/17/23 08:56 Antibiotics) doxycycline Allergy Mild blisters Verified 05/17/23 08:56 on skin phentermine AdvReac Intermediate Palpitation Verified 05/17/23 08:56 s Home Medications Medication Instructions Recorded Confirmed Type coenzyme Q10 200 mg capsule 200 mg PO QAM 01/01/19 08/08/23 History cholecalciferol (vitamin D3) 50 2,000 units PO QAM 09/18/19 08/08/23 History mcg (2,000 unit) capsule amlodipine 5 mg tablet 5 mg PO BID #180 tabs 01/02/20 08/08/23 Rx vitamin E 268 mg (400 unit) capsule 400 unit PO QAM 03/10/20 08/08/23 History Bioflavanoids With Vit C Otc 500 mg PO QAM 07/24/20 08/08/23 History biotin 5,000 mcg disintegrating 10,000 mcg PO DAILY 03/16/21 08/08/23 History tablet folic acid 1 tab PO DAILY 10/25/21 08/08/23 History amoxicillin 500 mg tablet 2,000 mg (4 x 500 mg) PO ONCE #4 07/19/22 08/08/23 Rx tabs albuterol sulfate 90 mcg/actuation 1 inh inhalation QID PRN shortness 10/20/22 08/08/23 Rx aerosol inhaler of breath or wheezing #8.5 grams pentoxifylline 400 mg 400 mg PO BID #180 tabs 10/24/22 08/08/23 Rx tablet,extended release levothyroxine 125 mcg tablet 125 mcg PO DAILY #90 tabs 05/29/23 08/08/23 Rx beta carotene 1 cap PO DAILY 08/08/23 08/08/23 History fluticasone 250 mcg-salmeterol 50 1 inh inhalation BID PRN Other 08/08/23 08/08/23 History mcg/dose blistr powdr for inhalation (Advair Diskus) Patient History Medical History UTI (urinary tract infection) Hyperlipidemia Diet controlled per PCP records Asthma Per records- hx of normal PFTs in the past- uses albuterol only PRN. Encounter for pre-operative examination Osteoarthritis Bilateral primary osteoarthritis of knee Lipodermatosclerosis FOLLOWS WITH DERMATOLOGY Encounter for pre-operative examination Osteoarthritis of right knee Diastolic dysfunction Grade II diastolic dysfunction per 2017 ECHO Gait disturbance Hypothyroidism Mild concentric left ventricular hypertrophy (LVH) Mild and concentric per 2017 ECHO- no pr specialist Morbid obesity Obstructive sleep apnea cpap PVD (posterior vitreous detachment) NO CURRENT PROBLEMS Hypertension Surgical History Status post total left knee replacement 08/21/2020- Dr. De Guzman History of total knee replacement RIGHT 04/2020 Status post total right knee replacement History of partial hysterectomy History of arthroscopy of right knee History of colonoscopy with polypectomy History of wisdom tooth extraction History of tonsillectomy and adenoidectomy History of dental surgery dental implant History of section, low transverse X 1 History of dilation and curettage Family History Sister Thyroid cancer Breast cancer Family hx colonic polyps Mother Colon cancer Grandmother (Paternal) Stroke Other No family history of adverse response to anesthesia Denies family history of Ovarian cancer Prostate cancer Myocardial infarction Social History Smoking Status: Never smoker Second Hand Exposure: No; Do You Dip or Chew Tobacco: No; Tobacco Cessation Education Requested by Patient: No Hx Alcohol Use: Yes (Rarely ) Alcohol type: wine Hx Substance Use: No Preferred Language: Romanian Communication Ability: Effective Visual Impairment: No Limitations Firmware Manager Required: No Beliefs That Will Affect Care: None marital status: Current Living Situation: Spouse current occupational status: employed current occupation: [employer] Other Information That Helps Us Care for You: No Feels Safe at Home: Yes Safety Concerns: Feels Safe At This Time Childhood Exposure to Second-Hand Smoke: No Dental Care, Regularly: Yes Physical Activity Frequency: 3-4 Times per Week Seatbelt Use: always Sunscreen Use: Yes Assistive Devices: Crutches and Walker Review of Systems Review of Systems: All systems reviewed & are unremarkable except as noted in HPI & below Physical Exam Constitutional: WD/WN, vitals as above Respiratory: normal respiratory effort, lungs clear to auscultation Cardiovascular: RRR, no murmur, no edema Gastrointestinal (Abdomen): RUQ pain to palpation, no guarding, soft, normal bowel sounds. Skin: no rashes, warm and dry Psychiatric: Orientation: alert and oriented x 3 Affect: euthymic affect Results & Data Vital Signs (Past 12 Hours) Vital Signs Temp Pulse Resp BP Pulse Ox O2 Del Method 08/09/23 07:30 97.7 F 65 16 151/71 H 95 Room Air 08/08/23 23:34 Room Air PG Care Time/CCT Total # of Minutes Spent Total Time Spent with Patient: Total time spent is greater than 50% in coordination of care (as documented) at patient's floor/unit and/or counseling patient: Coding Level of Care Code 85527 INT INP/OBS CARE 2/55MIN Diagnoses Biliary colic K80.50 RUQ pain R10.11
[2023-08-09] MEDS ORDERED: PANTOprazole 40 MG TAB PO ONE (10:45)
[2023-08-09] MEDS: FIRST - Mouthwash BLM 119 ML PO SCH ×2 (11:42→17:59)
--- NOTE | 2023-08-09 15:55 | XCELERA ---
[id number] \\[id number]
[2023-08-09] MEDS: PANTOprazole 40 MG TAB PO SCH (20:52)
[2023-08-09] MEDS ORDERED: ACETAMINOPHEN 325 MG TAB PO PRN (21:03)
[2023-08-10] MEDS: FIRST - Mouthwash BLM 119 ML PO SCH ×3 (00:14→12:23)
[2023-08-10] MEDS: HEPARIN SOD 5,000 UNIT/0.5 ML VIAL SQ SCH (05:35)
[2023-08-10 07:36] LABS: Basophils # (auto) 0.03 K/uL (0.00-0.20); Basophils % (auto) 0.5 %; Eosinophils # (auto) 0.16 K/uL (0.00-0.50); Eosinophils % (auto) 2.6 %; Hematocrit (blood only) 40.3 % (37.0-47.0); Hemoglobin 13.1 g/dl (12.0-16.0); Immature Granulocytes # (auto) 0.02 K/uL (0.01-0.20); Immature Granulocytes % (auto) 0.3 %; Lymphocytes # (auto) 1.86 K/uL (1.20-3.40); Mean Corpuscular Hemoglobin 29.4 pg (25.0-34.0); Mean Corpuscular Hgb Conc 32.5 g/dL (32.0-36.0); Mean Corpuscular Volume 90.6 fL (80.0-100.0); Mean Platelet Volume 9.3 fL (9.4-12.4); Monocytes # (auto) 0.55 K/uL (0.11-0.59); Monocytes % (auto) 8.9 %; Neutrophils # (auto) 3.59 K/uL (1.40-6.50); Neutrophils % (auto) 57.7 %; Platelet Count 303 K/uL (130-400); RDW Coefficient of Variation 13.5 % (11.5-14.5); RDW Standard Deviation 45.1 fL (36.4-46.3); Red Blood Count 4.45 M/uL (4.20-5.40); White Blood Count 6.21 K/ul (4.8-10.8)
[2023-08-10] MEDS: LEVOTHYROXINE SODIUM 125 MCG TABLET PO SCH (08:10)
[2023-08-10] MEDS: amLODIPine BESYLATE 5 MG TAB PO SCH (08:10)
[2023-08-10] MEDS: PENTOXIFYLLINE 400MG EXT REL TAB PO SCH (08:10)
[2023-08-10] MEDS: FLUTICASONE/VILANTEROL 200/25MCG 14 PUFFS/INHALER INH SCH ×2 (08:11→08:12)
[2023-08-10] MEDS: PANTOprazole 40 MG TAB PO SCH (08:11)
[2023-08-10 08:16] LABS: Albumin Globulin Ratio 1.4 (0.9-2); Albumin Level 3.8 gm/dl (3.4-5.0); BUN Creatinine Ratio 25.6 (10-20); Bilirubin,Total 0.7 mg/dl (0.2-1.0); Calcium 9.1 mg/dl (8.6-10.3); Creatinine Clr Calc Pharmacy 96.7 ml/min; Est GFR (African American) 91.2 ml/min; Est GFR (Non-African American) 78.7 ml/min; Globulin 2.7 gm/dl (2.5-4.0); Total Protein 6.5 gm/dl (6.0-8.3)
--- NOTE | 2023-08-10 11:07 | Surgery Progress Note ---
Date of Service August 10, 2023 Assessment & Plan (1) Cholelithiases: Plan: Pt reports abdominal pain a 3/10 RUQ and epigastric area No n/v today. reports emesis yesterday early afternoon after taking "some pink stuff" no fever, chills, sob VSS , WBC 6.2 Hospital unable to obtain a HIDA scan at this time, CT scan only showing cholelithiasis, no wbc elevation, afebrile obese abdomen, TTP RUQ and epigastric area, 3/10 pain Tolerating low fat diet No acute surgical intervention indicated for this stay Patient may f/u outpatient for a cholecystectomy, discussed this with patient. ok for d/c from surgical perspective Admission and Anticipated Discharge Date Admission Date: August 09, 2023 Supervising Physician Co-Signing Physician Notes I personally saw and evaluated the patient with Ar EDEN and agree with the assessment and plan. 67 yo female with gallstones She continues without fever, leukocytosis of LFT abnormality and pain is improved Unlikely she has cholecystitis She can follow up with me as an outpatient to discuss if cholecystectomy is indicated she can be discharged from a surgical standpoint, please call with any questions or concerns Subjective Pt reports abdominal pain a 3/10 RUQ and epigastric area No n/v today. reports emesis yesterday early afternoon after taking "some pink stuff" no fever, chills, sob Review of Systems Constitutional: no fever and no chills Ear, Nose, Mouth, Throat: no hearing loss Respiratory: no dyspnea Cardiovascular: no chest pain Gastrointestinal: + abdominal pain; no nausea and no vomit ing Musculoskeletal: no muscle weakness Neurologic: no confusion and no memory loss Physical Exam Physical Exam: alert oriented pleasant Constitutional: + morbidly obese, cooperative and comfor table; no acute distress ENMT: external ear and nose normal, oropharynx normal Neck: trachea midline, no thyromegaly Respiratory: normal respiratory effort and able to speak in complete sentences; no respiratory distress Cardiovascular: Rate/Rhythm: regular rate Gastrointestinal (Abdomen): Percussion/Palpation: + abdomen tender and abdomen soft; abdomen not rigid Musculoskeletal: no cyanosis or clubbing, extremities motor strength 5/5 Psychiatric: A+Ox3, euthymic affect Results & Data Vital Signs (Past 12 Hours) Vital Signs Temp Pulse Resp BP Pulse Ox O2 Del Method 08/10/23 07:36 98.4 F 63 18 155/70 H 98 Room Air PG Care Time/CCT Total # of Minutes Spent Total Time Spent with Patient: Total time spent is greater than 50% in coordination of care (as documented) at patient's floor/unit and/or counseling patient: Coding Level of Care Code 34617 SUB INP/OBS CARE 08/10MIN Diagnoses Cholelithiases K80.20
--- NOTE | 2023-08-10 13:50 | Communication Note ---
Date of Service: August 10, 2023 By CMS guidelines, a determination that the admission or continued stay is not medically necessary has been made by a member of the UR committee and a ph ysician for this hospital stay, therefore a Code 44 will be completed and the Inpatient admission will be changed to outpatient.
--- NOTE | 2023-08-10 18:56 | Discharge Summary ---
Date of Service August 10, 2023 Admission HPI Per Admitting Provider Zuleyka is a 67 year old female with a PMH significant for morbid obesity, HTN, hypothyroidism who presented to the [facility] ED on 08/08/23 with complaints of Chest/RUQ pain. She was noted to be hypertensive at 193/76 but otherwise remained stable in the ED. Labs including CBC, CMP, 2 high sen troponin, and UA were unremarkable. Chest xray was negative for acute findings. Gallbladder US was read as "1. Cholelithiasis is noted without definite gallbladder wall thickening or pericholecystic fluid. The sonographic Payton's sign was reported as positive. Findings should be correlated clinically to exclude acute cholecys titis. 2. The common bile duct measures within the upper limits of normal at 7 mm. 3. Mild pelvocaliectasis of the right kidney.". The ED spoke with GI who initially recommended MRCP for further evaluation. Unfortunately the patient was unable to tolerate the MRCP was she was too claustrophobic and refused medication prior. GI then recommended a CT of the abd/pelvis w/IV con. The patient was premedicated prior for her hx of contrast allergy. CT of the abd/pelvis w/IV con was read as "1. No acute intra-abdominal or intrapelvic abnormality. 2. Cholelithiasis, and a fat-containing right ventral abdominal wall hernia and developed in the interval. 3. Normal appendix, incidentally located in the right lateral upper quadrant between the liver and lateral abdominal wall.". The patient was too anxious to return home for fear of recurrent severe abdominal pain. General Surgery was consulted and will be obtaining a HIDA with plans for possible cholecystectomy during this admission. Prior to admission the patient was given 500 mL NSS, 50 mg IV benadryl, and 40 mg IV solu-medrol. AT the time of the exam the patient was lying in bed in no acute distress with her sitting bedisde. She states that she experienced a sharp/stabbing epigastric/RUQ abdominal pain shortly after eating breakfast this am. She had two eggs, a piece of toast, and a cup of coffee to her symptoms starting. She was concerned she was having a heart attack and called EMS. She states that she has a previous history of biliary colic and was previously evaluated by general surgery and offered elective cholecystectomy. This is the first episode of pain since she was last evaluated. She denies recent fever, chills, cough, SOB, nausea, vomiting, dysuria, hematuria, melena, LE swelling, and recent trauma. She is a full code and wishes for her to make medical decisions for her if she cannot make them herself. Please refer to Dr. Brunson's attestation for any changes to the treatment plan Principal Diagnosis Abdominal painimproved Discharge Exam In general she is awake and alert pleasant no distress. HEENT normocephalic atraumatic mucous membranes moist. Breathing unlabored no accessory muscle use good effort. Skin shows no rashes no pallor or icterus. Neuro without focal deficits. Discharge Data Allergies Allergy/AdvReac Type Severity Reaction Status Date / Time Iodinated Contrast Media Allergy Intermediate HIVES Verified 05/17/23 08:56 Sulfa (Sulfonamide Allergy Intermediate Hives Verified 05/17/23 08:56 Antibiotics) doxycycline Allergy Mild blisters Verified 05/17/23 08:56 on skin phentermine AdvReac Intermediate Palpitation Verified 05/17/23 08:56 s Consultations 08/08/23 19:36 Consult General Surgery Routine 08/08/23 19:48 ED Decision to Admit Stat 08/09/23 07:52 Consult Gastroenterology Routine Ordered Studies 08/08/23 11:50 US gallbladder Stat 08/08/23 15:17 MR MRCP Stat 08/08/23 17:34 CT Abd and Pelvis [CT abd pelvis IV con only] Stat Hospital Course (1) Biliary colic: -Admitted with abdominal paininitial concern on biliary colic. Symptoms have resolved, surgery does not feel there is an overt need for cholecystectomy. Differential on her abdominal pain would be indigestion with esophageal spasm, versus less likely early peptic ulcer disease, versus possibly biliary colic but had a stone that has passed. With no overt indication for cholecystectomy, and patient tolerating low-fat diet wellsafe/stable for home, tried to make clear to patient that her situation is very much a "work in progress" and that she should definitely follow-up with PCP and surgery to better determine root cause and definitive management as her symptoms evolve. (2) Obstructive sleep apnea: (3) Hypothyroidism: -Continue levothyroxine (4) Essential hypertension: -Stable -Continue amlodipine Total Time Total Time Spent Total Time Spent (In Minutes): Less than 30 Discharge Plan Discharge Items Patient Disposition: Home - Self-Care Reason For Visit: BILIARY COLIC Discharge Diagnosis: abdominal pain (see below) Activity: Resume your previous activity Non-emergency contact: Primary Care Provider and Surgeon Call non-emergency contact if: you have any medication questions and your symptoms worsen Follow-up/Referrals: Danna Plaza MD [Primary Care Provider] - 08/17/23 11:00 am (APPOINTMENT WITH FERNANDO BARBER) Darrion Johnson DO [Physician] - (call office to discuss outpatient cholecystectomy ) Diet: Low Fat Addtl Attending Provider Instructions: abdominal pain fortunately your pain is resolved. As we discussed, it is not 100% clear with cause was. The main 3 causes could easily have been: - A bout of reflux that then led to esophagus spasm. This would fit well given how sudden onset it was, how this is never happened before, and how generally y ou are feeling better and eating well. If this was the culprit, you will know because things essentially fade away and do not come back again. No specific treatment would be needed for this, unless it becomes a recurring problem. If that was the case, not managing him more aggressively for reflux might be of benefit. - The beginnings of a stomach ulcer/gastritisthis seems less likely because you have gotten better well, and we really done very little to intervene. At the same time, this is certainly one of the most common reason someone would have pain the way you had. When you get home, if it seems like you have recurrence of the pain fairly easily, and not just with fatty foods, as well as if you start to develop any degree of constant burning/gnawing/aching pain at the top of your stomach (in the area below your breastbone and above your bellybutton)then it would seem more likely that you might be starting to develop an ulcer. If this was the case, I would definitely want you to see your PCP to start appropriate medications and follow to make sure you get better. - It also easily could have been a gallstone/biliary colic that passed and got better. As we discussed, 25% of people do have gallstones, so simply the presence of having gallstones does not necessarily mean it was her gallbladder that was the problem. At the same time, your symptoms certainly seemed to fit with that. You do not have an infected gallbladder/inflamed gallbladder, or any type of true gallbladder emergencyhence why the gastroenterologists and surgeons did not feel it necessary to "do any plumbing" as far as clearing your bile ducts, or taking out her gallbladder. At the same time, should you have ongoing/recurrent similar symptoms, then we may need to reconsider this approach. In that respect, definitely continue to follow-up with the surgeons in addition to your primary care physician. All of the above possible diagnoses would be easier to keep under control with a low-fat dietto that end I would recommend eating predominantly fruits and vegetables and lean sources of protein, and avoiding saturated fats. Pending Studies at Discharge: No Stand-Alone Forms: [email or web address], Smoking Cessation Medications and DC Order Prescriptions: Continued coenzyme Q10 200 mg capsule 200 mg PO QAM amlodipine 5 mg tablet 5 mg PO BID Qty: 180 3RF Hold Instructions: not taking Patient Comments: hasnt been taking but recently she has amoxicillin 500 mg tablet 2,000 mg PO ONCE Qty: 4 3RF Rx Instructions: 4 tabs 1 hour prior to procedure albuterol sulfate 90 mcg/actuation HFA aerosol inhaler 1 inh inhalation QID PRN (Reason: shortness of breath or wheezing) Qty: 8.5 4RF pentoxifylline 400 mg tablet extended release 400 mg PO BID Qty: 180 2RF Rx Instructions: administer with meals levothyroxine 125 mcg tablet 125 mcg PO DAILY Qty: 90 3RF biotin 5,000 mcg tablet,disintegrating 10,000 mcg PO DAILY folic acid 1 tab PO DAILY Bioflavanoids With Vit C Otc 500 mg PO QAM cholecalciferol (vitamin D3) 2,000 unit capsule 2,000 units PO QAM vitamin E 400 unit capsule 400 unit PO QAM beta carotene 1 cap PO DAILY fluticasone propion-salmeterol [Advair Diskus] 250-50 mcg/dose blister with device 1 inh inhalation BID PRN (Reason: Other) Discharge Orders: Discharge Order (Routine); Ordered 08/10/23 Ordered By: Byron Valladares/Other Patient Handouts: Anatomy of the Digestive System Admission Data Admit Date/Time: 08/09/23 15:40 Attending Provider: Byron Mueller Admit Provider: Christian Brunson Primary Care Provider: Danna Plaza V. Other Providers: Darrion Johnson; Christian Brunson; Robert Campos Other Interventions: Discharge Summary Assessment (RN) Last Done: 08/10/23 13:59 Coding Level of Care Code 52946 IN/OBS DISCH 30 MIN/LESS Diagnoses Biliary colic K80.50 Obstructive sleep apnea G47.33 Acquired hypothyroidism E03.9 Hypothyroidism type: acquired Essential hypertension I10
== END 2023-08-10 14:35 | disposition home or self-care (01) | DRG 445 ==
LOC: 3W 11:41 → ED 11:41 → SUATTDRO 20:00 → 3W 20:45 → SUATTDRO 08-09 15:40